=== PATIENT | female | born 1935 | race Caucasian/White ===

== ENCOUNTER 2017-09-19 10:33 | Observation (INO) | payer MEDICARE, BC ==
--- NOTE | 2017-09-19 11:11 | ED PDOC ---
HPI: General Adult Time Seen by Provider: 09/19/17 11:09 Chief Complaint (Nursing): Weakness/Neurological Deficit Chief Complaint (Provider): weakness History Per: Patient (82 y/o female h/o HTN DM Gastritis here with complaint of ongoing weakness x 2 weeks worsening over few days and preventing patient from eating. Family states patient fell 2 days ago when legs buckled from under her and she struck her head. No LOC at that time. Family notes ongoing cough. Patient was recently changed from lisinopril to hctz this week secondary to pruiritis. No fevers/chills/urinary complaints/vomiting.) Against Medical Advice - AMA Patient Left Against Medical Advice: The patient declines admission to the hospital and wishes to leave the Emergency Department. This action is against my medical advice. This decision was made with informed refusal. The patient was told that admission to the hospital is necessary. Explanation of the reasons why were discussed. The risks of leaving were explained to the patient and include, but are not limited to, worsening of known or currently unknown conditions, permanent disability and from undiagnosed or untreated conditions. The patient has the capacity to make this informed decision and understands my explanation of the current medical problem and risks of leaving. The patient voluntarily accepts these risks and signed an AMA form documenting our conversation. The patient was given the opportunity to ask questions and reconsider. The patient was encouraged to return to the Emergency Department at any time for further care. After patient given AMA information, family and patient decided to stay inpatient according to medical advice. 09/19/17 19:17 Past Medical History Reviewed: Historical Data, Nursing Documentation, Vital Signs Vital Signs: Last Vital Signs Temp 97.4 F L 09/20/17 08:30 Pulse 102 H 09/20/17 09:36 Resp 18 09/20/17 08:30 BP 162/73 H 09/20/17 09:36 Pulse Ox 95 09/20/17 08:30 - Family History Family History: States: No Known Family Hx - Home Medications Home Medications: Ambulatory Orders Medication Instructions Recorded Aspirin [Aspirin Chewable] 81 mg PO DAILY 09/19/17 Brimonidine 0.15% [Alphagan P 5 Ml] 15 ml BOTHEYES BID 09/19/17 Brinzolamide [Azopt] 1 drop BOTHEYES BID 09/19/17 Clindamycin [Cleocin] 300 mg PO Q6 #28 cap 09/19/17 Diltiazem HCl [Diltiazem HCl] 180 mg PO DAILY 09/19/17 Glipizide [Glipizide Xl] 5 mg PO DAILY 09/19/17 Hydrochlorothiazide [Microzide] 12.5 mg PO DAILY 09/19/17 Ranitidine HCl [Acid Insurance Loss Control Surveyor] 150 mg PO BID 09/19/17 - Allergies Allergies/Adverse Reactions: Allergies Allergy/AdvReac Type Severity Reaction Status Date / Time lisinopril Allergy RASH Verified 09/19/17 10:48 Penicillins Allergy VOMITING Verified 09/19/17 10:48 Review of Systems ROS Statement: Except As Marked, All Systems Reviewed And Found Negative Neurological: Positive for: Weakness Physical Exam - Reviewed Nursing Documentation Reviewed: Yes Vital Signs Reviewed: Yes - Physical Exam Appears: Positive for: Well, Non-toxic, No Acute Distress Head Exam: Positive for: ATRAUMATIC, NORMAL INSPECTION, NORMOCEPHALIC Skin: Positive for: Normal Color, Warm, DRY Eye Exam: Positive for: EOMI, Normal appearance, PERRL ENT: Positive for: Normal ENT Inspection Neck: Positive for: Normal, Painless ROM Cardiovascular/Chest: Positive for: Regular Rate, Rhythm Respiratory: Positive for: CNT, Normal Breath Sounds Gastrointestinal/Abdominal: Positive for: Normal Exam, Bowel Sounds, Soft Back: Positive for: Normal Inspection Extremity: Positive for: Normal ROM Neurologic/Psych: Positive for: Alert, Oriented - Laboratory Results Result Diagrams: 09/20/17 05:41 09/20/17 05:41 - ECG O2 Sat by Pulse Oximetry: 100 - Progress ED Course And Treament: ekg: NSR 84bpm no obvious ST abnomality Heart monitor: occasional PVC noted head ct: left parietal swelling;no acute intracranial hemorrhage duplex left lower extremity: no dvt KDUR 60 meq x 1 dose NS 1 liter 100 ml per hour As patient has pain in left leg greater than right with mild erythema, will start on clindamycin 600mg iv x 1 dose for possible cellulitis Family initially hesitant to have patient admitted. Power of contracts attorney in ED several hours after initial evaluation and lengthy discussion repeated with all family members in room regarding AMA paperwork and benefits of admission as well as risks of discharge home. Family has decided to allow patient admission to hospital for evaluation of weakness/treatment of cellulitis/ improvement of hypokalemia/hyponatremia. Will admit tele and re-evaluate. d/w Dr. Rowe hospitalist. Disposition - Clinical Impression Clinical Impression: Hypokalemia, Hyponatremia, Cellulitis, Falls, Head injury - Patient ED Disposition Is Patient to be Admitted: Yes - Disposition Disposition Time: 18:55 Condition: FAIR
[2017-09-19 11:23] LABS: BASO # 0.1 K/uL (0.0-0.2); BASO % 1.2 % (0.0-2.0); EOS # 1.8 K/uL (0.0-0.7); EOS % 21.2 % (0.0-4.0); HEMOGLOBIN 11.5 g/dL (12.0-16.0); LYMPH # 1.6 K/uL (1.0-4.3); LYMPH % 18.6 % (20.0-40.0); MEAN CELL VOLUME 98.7 fl (81.0-99.0); MEAN CORPUSCULAR HEMOGLOBIN 34.8 pg (27.0-31.0); MEAN CORPUSCULAR HGB CONC 35.2 g/dL (33.0-37.0); MEAN PLATELET VOLUME 6.5 fl (7.2-11.7); MONO # 1.1 K/uL (0.0-0.8); MONO % 13.2 % (0.0-10.0); NEUT % 45.8 % (50.0-75.0); NRBC % 0.1 % (0.0-0.0); PLATELET COUNT 373 K/uL (130-400); RBC 3.31 Mil/uL (3.80-5.20); WHITE BLOOD COUNT 8.6 K/uL (4.8-10.8)
[2017-09-19 11:28] LABS: ALB/GLOB RATIO 1.2 (1.0-2.1); ALBUMIN 3.7 g/dL (3.5-5.0); ALT/SGPT 35 U/L (9-52); AST/SGOT 73 U/L (14-36); BLOOD UREA NITROGEN 8 mg/dl (7-17); CALCIUM 9.7 mg/dL (8.4-10.2); GFR AFRICAN-AMERICAN > 60; GFR NON-AFRICAN AMERICAN > 60
[2017-09-19 11:41] LABS: B-TYPE NATRIURETIC PEPTIDE 755 pg/ml (0-900)
[2017-09-19] MEDS ORDERED: Potassium Chloride 20 mEq ER Tab PO ONE ×2 (11:55→12:18)
[2017-09-19] MEDS ORDERED: Potassium Chloride 20 mEq 100 ML IVPB ONE (11:55)
[2017-09-19] MEDS ORDERED: Sodium Chloride 0.9% 1,000 ML IV STA (11:56)
[2017-09-19 12:06] LABS: VENOUS BLOOD GAS BASE EXCESS 9.7 mmol/L (0.0-2.0); VENOUS BLOOD GAS PCO2 51 mmHg (40-60); VENOUS BLOOD GAS PO2 22 mm/Hg (30-55); VENOUS BLOOD PH 7.45 (7.32-7.43)
[2017-09-19] MEDS ORDERED: Potassium Chloride 20 mEq 100 ML ONE (12:18)
--- NOTE | 2017-09-19 12:42 | CT ---
PROCEDURE: CT HEAD WITHOUT CONTRAST. HISTORY: head injury COMPARISON: None available. TECHNIQUE: Axial computed tomography images were obtained through the head/brain without intravenous contrast. Radiation dose: Total exam DLP = 790.8 mGy-cm. This CT exam was performed using one or more of the following dose reduction techniques: Automated exposure control, adjustment of the mA and/or kV according to patient size, and/or use of iterative reconstruction technique. FINDINGS: HEMORRHAGE: No intracranial hemorrhage. BRAIN: No mass effect or edema. Atrophy. Mild chronic microvascular ischemic changes. VENTRICLES: Unremarkable. No hydrocephalus. CALVARIUM: Unremarkable. PARANASAL SINUSES: Unremarkable as visualized. No significant inflammatory changes. MASTOID AIR CELLS: Unremarkable as visualized. No inflammatory changes. OTHER FINDINGS: High left posterior parietal scalp swelling. IMPRESSION: No acute intracranial pathology.
[2017-09-19 12:43] LABS: EOSINOPHIL 24 % (0-7); HYPOCHROMIC SLIGHT; LYMPHOCYTE 15 % (20-50); MONOCYTE 14 % (0-10); NEUTROPHIL 47 % (42-75); PLATELET ESTIMATE NORMAL (NORMAL); TOTAL CELLS COUNTED 100; TOXIC GRANULATION PRESENT
[2017-09-19 13:54] LABS: SQUAMOUS EPITHIAL 3 /hpf (0-5); URINE AMORPHOUS SEDIMENT FEW /ul (<OCC); URINE BACTERIA OCC (<OCC); URINE BILIRUBIN NEGATIVE (NEGATIVE); URINE BLOOD NEGATIVE (NEGATIVE); URINE CLARITY SLIGHTY-CLOUDY (Clear); URINE COLOR YELLOW (YELLOW); URINE GLUCOSE (UA) NEG (Normal); URINE LEUKOCYTE ESTERASE NEG Leu/uL (Negative); URINE PROTEIN 30 mg/dL (NEGATIVE); URINE UROBILINOGEN 0.2-1.0 mg/dL (0.2-1.0)
--- NOTE | 2017-09-19 14:00 | US ---
HISTORY: r/o dvt . PRIORS: None. FINDINGS: 2-D, color and duplex Doppler analysis of the lower extremity venous circulation using routine protocol from the femoral veins through the popliteal veins. Venous compressibility: Normal. Flow and augmentation patterns: Normal. Visualized veins upper third of calf: Normal. Taylor cyst: None. IMPRESSION: No sonographic or Doppler evidence for DVT in left lower extremity.
--- NOTE | 2017-09-19 14:10 | RAD ---
PROCEDURE: CHEST RADIOGRAPH, 1 VIEW HISTORY: routine COMPARISON: None available. FINDINGS: LUNGS: Prominence of the bilateral interstitial markings, likely chronic. No focal consolidated. PLEURA: No pneumothorax or pleural fluid seen. CARDIOVASCULAR: Atherosclerotic aortic calcifications. Cardiomediastinal silhouette enlarged. OSSEOUS STRUCTURES: Partially imaged left reverse total shoulder arthroplasty spinal and shoulder degenerative changes. VISUALIZED UPPER ABDOMEN: Normal. OTHER FINDINGS: None. IMPRESSION: Prominence of the bilateral interstitial markings, likely chronic. No focal consolidation or pleural effusion.
[2017-09-19] MEDS ORDERED: Clindamycin in NS 300 MG/50 ML BAG IVPB STA (14:49)
[2017-09-19] MEDS ORDERED: Clindamycin 600mg/50ml NS 600 MG/50 ML BAG IVPB ONE (14:55)
[2017-09-19] MEDS ORDERED: DiphenhydrAMINE 12.5 mg/5 ml LIQ UD (5 ml) PO PRN (19:17)
--- NOTE | 2017-09-19 19:39 | CP.PCM.HP ---
History of Present Illness - History of Present Illness History of Present Illness: This is a 82 year old female with a past medical history significant for essential hypertension, Type 2 diabetes mellitus, history of gastritis, seasonal allergies, history of cellulitis of the left lower extremity 1 month ago, who presents to the ED today with the complaint of worsening generalized weakness, decreased po intake, and lethargy, getting increasingly worse over the last 2 weeks. Family members report that 2 days ago her legs buckled underneath her and she hit her head at that time. She saw Dr. Naranjo and was prescribed HCTZ about one week ago as her lisinopril was discontinued due to pruritis and concern for allergy. In addition patient complaining of some mild pain and swelling to her left leg and foot. In the ED, the patient was found to be clinically dehydrated. Labwork reveals hypokalemia of 2.7, sodium of 128, and chloride of 88, secondary to poor po intake and use of HCTZ. CT head was found to be negative. EKG shows occ PVC but no ischemia. US LLE negative for DVT; clindamycin was given due to concern for recurrent left leg cellulitis. The patient is to be admitted on observation overnight for IV hydration, monitoring of electrolytes, and for further IV antibiotic. Present on Admission - Present on Admission Any Indicators Present on Admission: No History of DVT/PE: No Review of Systems - Review of Systems Review of Systems: A 12 point review of systems was conducted and found to be negative other than what was mentioned in the HPI. Past Patient History - Infectious Disease Hx of Infectious Diseases: None - Past Medical History & Family History Past Medical History?: Yes Past Family History: Reviewed and not pertinent - Past Social History Smoking Status: Never Smoked Alcohol: None Drugs: Denies Home Situation {Lives}: With Family - CARDIAC Hx Hypertension: Yes - INTEGUMENTARY Hx Cellulitis: Yes - GASTROINTESTINAL Hx Gastritis: Yes - PSYCHIATRIC Hx Substance Use: No - SURGICAL HISTORY Hx Surgeries: No - ANESTHESIA Hx Anesthesia: No Meds Home Medications: Home Medication List Medication Instructions Recorded Confirmed Type Clindamycin [Cleocin] 300 mg PO Q6 #28 cap 09/19/17 Rx Allergies/Adverse Reactions: Allergies Allergy/AdvReac Type Severity Reaction Status Date / Time lisinopril Allergy RASH Verified 09/19/17 10:48 Penicillins Allergy VOMITING Verified 09/19/17 10:48 Physical Exam - Additional Findings Additional findings: Physical exam: Constitutional- cooperative, awake, alert, hard of hearing. clinically appears dehydrated Head- NCAT, PERRL Eye- PERRL, EOMI ENT- normal exam, MMM + Patient is hard of hearing. Neck- normal inspection, supple, no JVD Respiratory- CTAB, no wheezes rales rhonchi Cardiovascular- RRR, +S1, +S2 no MRG GI/Abdominal- normal bowel sounds, soft, no mass, no hsm Skin- warm, dry Extremities Exam- + Mild erythema and swelling of the left leg, anterior tibial area. nontender to palpation. normal capillary refill, normal inspection Neurological Exam- alert, awake, oriented Psych- normal mood, normal affect Results - Vital Signs Recent Vital Signs: Last Vital Signs Temp 97.8 F 09/19/17 14:47 Pulse 91 H 09/19/17 14:47 Resp 16 09/19/17 14:47 BP 144/59 L 09/19/17 14:47 Pulse Ox 100 09/19/17 19:18 - Labs Result Diagrams: 09/19/17 11:00 09/19/17 11:00 Labs: Laboratory Results - last 24 hr 09/19/17 09/19/17 09/19/17 11:00 11:00 11:00 WBC 8.6 RBC 3.31 L Hgb 11.5 L Hct 32.7 L MCV 98.7 MCH 34.8 H MCHC 35.2 RDW 13.0 Plt Count 373 MPV 6.5 L Neut % (Auto) 45.8 L Lymph % (Auto) 18.6 L [place] % (Auto) 13.2 H Eos % (Auto) 21.2 H Baso % (Auto) 1.2 Neut # (Auto) 4.0 Lymph # (Auto) 1.6 [place] # (Auto) 1.1 H Eos # (Auto) 1.8 H Baso # (Auto) 0.1 Neutrophils % (Manual) 47 Lymphocytes % (Manual) 15 L Monocytes % (Manual) 14 H Eosinophils % (Manual) 24 H Toxic Granulation Present Platelet Estimate Normal Hypochromasia (manual) Slight ESR pO2 VBG pH VBG pCO2 VBG HCO3 VBG Total CO2 VBG O2 Sat (Calc) VBG Base Excess VBG Potassium Glucose Lactate FiO2 Sodium 128 L Potassium 2.7 L Chloride 88 L Carbon Dioxide 28 Anion Gap 15 BUN 8 Creatinine 0.4 L Est GFR ( Amer) > 60 Est GFR (Non-Af Amer) > 60 Random Glucose 110 H Calcium 9.7 Total Bilirubin 0.9 AST 73 H ALT 35 Alkaline Phosphatase 72 Total Creatine Kinase Troponin I 0.0210 NT-Pro-B Natriuret Pep 755 Total Protein 6.9 Albumin 3.7 Globulin 3.1 Albumin/Globulin Ratio 1.2 Venous Blood Potassium Urine Color Urine Clarity Urine pH Ur Specific Brent Urine Protein Urine Glucose (UA) Urine Ketones Urine Blood Urine Nitrate Urine Bilirubin Urine Urobilinogen Ur Leukocyte Esterase Urine RBC (Auto) Urine Microscopic WBC Ur Squamous Epith Cells Amorphous Sediment Urine Bacteria Influenza Typ A,B (EIA) Negative for flu a/b 09/19/17 09/19/17 09/19/17 11:40 11:40 11:55 WBC RBC Hgb Hct MCV MCH MCHC RDW Plt Count MPV Neut % (Auto) Lymph % (Auto) [place] % (Auto) Eos % (Auto) Baso % (Auto) Neut # (Auto) Lymph # (Auto) [place] # (Auto) Eos # (Auto) Baso # (Auto) Neutrophils % (Manual) Lymphocytes % (Manual) Monocytes % (Manual) Eosinophils % (Manual) Toxic Granulation Platelet Estimate Hypochromasia (manual) ESR 55 H pO2 22 L VBG pH 7.45 H VBG pCO2 51 VBG HCO3 31.0 VBG Total CO2 37.0 H VBG O2 Sat (Calc) 38.9 L VBG Base Excess 9.7 H VBG Potassium 2.7 L Glucose 108 H Lactate 1.1 FiO2 21.0 Sodium 128.0 L Potassium Chloride 90.0 L Carbon Dioxide Anion Gap BUN Creatinine Est GFR ( Amer) Est GFR (Non-Af Amer) Random Glucose Calcium Total Bilirubin AST ALT Alkaline Phosphatase Total Creatine Kinase 73 Troponin I NT-Pro-B Natriuret Pep Total Protein Albumin Globulin Albumin/Globulin Ratio Venous Blood Potassium 2.7 L Urine Color Urine Clarity Urine pH Ur Specific Brent Urine Protein Urine Glucose (UA) Urine Ketones Urine Blood Urine Nitrate Urine Bilirubin Urine Urobilinogen Ur Leukocyte Esterase Urine RBC (Auto) Urine Microscopic WBC Ur Squamous Epith Cells Amorphous Sediment Urine Bacteria Influenza Typ A,B (EIA) 09/19/17 13:30 WBC RBC Hgb Hct MCV MCH MCHC RDW Plt Count MPV Neut % (Auto) Lymph % (Auto) [place] % (Auto) Eos % (Auto) Baso % (Auto) Neut # (Auto) Lymph # (Auto) [place] # (Auto) Eos # (Auto) Baso # (Auto) Neutrophils % (Manual) Lymphocytes % (Manual) Monocytes % (Manual) Eosinophils % (Manual) Toxic Granulation Platelet Estimate Hypochromasia (manual) ESR pO2 VBG pH VBG pCO2 VBG HCO3 VBG Total CO2 VBG O2 Sat (Calc) VBG Base Excess VBG Potassium Glucose Lactate FiO2 Sodium Potassium Chloride Carbon Dioxide Anion Gap BUN Creatinine Est GFR ( Amer) Est GFR (Non-Af Amer) Random Glucose Calcium Total Bilirubin AST ALT Alkaline Phosphatase Total Creatine Kinase Troponin I NT-Pro-B Natriuret Pep Total Protein Albumin Globulin Albumin/Globulin Ratio Venous Blood Potassium Urine Color Yellow Urine Clarity Slighty-cloudy Urine pH 8.0 Ur Specific Brent 1.009 Urine Protein 30 Urine Glucose (UA) Neg Urine Ketones Trace Urine Blood Negative Urine Nitrate Negative Urine Bilirubin Negative Urine Urobilinogen 0.2-1.0 Ur Leukocyte Esterase Neg Urine RBC (Auto) 4 H Urine Microscopic WBC 1 Ur Squamous Epith Cells 3 Amorphous Sediment Few H Urine Bacteria Occ H Influenza Typ A,B (EIA) Assessment & Plan - Assessment and Plan (Free Text) Plan: ASSESSMENT/PLAN This is a 82 year old female with a past medical history significant for essential hypertension, Type 2 diabetes mellitus, history of gastritis, seasonal allergies, history of cellulitis of the left lower extremity 1 month ago, now being placed on observation for electrolyte abnormality, dehydration, and secondary weakness 1) Hypokalemia, HCTZ induced and decreased po intake - Place on observation - Kdur 60 meq given in ED, continue 20 meq po bid - 2.7 on admission - Check magnesium and phosphorus as well - Repeat labwork in AM 2) Hypovolemia with hyponatremia and hypochloremia from dehydration - Continue normal saline at 100 cc/hour overnight - Encourage po fluid intake - Recheck labwork in AM 3) Generalized weakness, failure to thrive - encourage po intake of fluids and food - PT evaluation 4) Cellulitis of left lower extremity - Mild erythema, swelling - No fever or white count so far, continue to monitor - Continue Clindamycin 600 mg IVPB q 8 hours - Recheck CBC in AM - Bacid 1 tab po BID for c. diff prophylaxis 5) Type 2 DM - Accucheks with regular insulin sliding scale while admitted - Pt may restart oral hypoglycemic medications upon discharge 6) Essential hypertension - Hold HCTZ, lisinopril - Continue verapamil 7) DVT prophylaxis - Heparin 5000 sc q 12 hours
[2017-09-19] MEDS: Insulin Regular 100 units/ml SC SCH (22:07)
[2017-09-19] MEDS: Lactobacillus Acidophilus 500 MU Cap PO SCH (22:10)
--- NOTE | 2017-09-20 00:12 | CARD ---
APPROVED REPORT EKG Measurement Heart [id number] <Conclusion> Normal sinus rhythm Possible Left atrial enlargement Junctional ST depression, probably normal Borderline ECG
[2017-09-20] MEDS ORDERED: Pneumococcal 23-Valent Vaccine IM ONE (06:00)
[2017-09-20] MEDS: Insulin Regular 100 units/ml SC SCH ×4 (06:32→22:04)
[2017-09-20 07:16] LABS: HEMOGLOBIN 10.9 g/dL (12.0-16.0); MEAN CELL VOLUME 100.7 fl (81.0-99.0); MEAN CORPUSCULAR HEMOGLOBIN 34.4 pg (27.0-31.0); MEAN CORPUSCULAR HGB CONC 34.2 g/dL (33.0-37.0); RBC 3.17 Mil/uL (3.80-5.20)
[2017-09-20] MEDS ORDERED: Magnesium Sulfate 2 GM in Sodium Chloride 0.9% 100 ML IVPB ONE (07:23)
[2017-09-20 07:38] LABS: BLOOD UREA NITROGEN 4 mg/dl (7-17); CALCIUM 9.5 mg/dL (8.4-10.2); GFR AFRICAN-AMERICAN > 60; GFR NON-AFRICAN AMERICAN > 60
[2017-09-20] MEDS ORDERED: Potassium Chloride 20 mEq ER Tab PO SCH (09:00)
[2017-09-20] MEDS ORDERED: diltiaZEM 180 mg/24 Hours CD Cap PO SCH (09:00)
[2017-09-20] MEDS ORDERED: Magnesium Sulfate 2 gm/50 ml 2 GM/50 ML BAG IVPB ONE ×2 (09:30→16:00)
[2017-09-20] MEDS: Lactobacillus Acidophilus 500 MU Cap PO SCH ×2 (09:36→17:53)
[2017-09-20] MEDS: Potassium Chloride 20 mEq ER Tab PO SCH ×2 (09:38→17:55)
[2017-09-20] MEDS: Clindamycin 600mg/50ml NS 600 MG/50 ML BAG IVPB SCH ×2 (09:39→17:38)
[2017-09-20] MEDS: Dorzolamide 2% Ophth Soln OU SCH ×2 (11:12→13:30)
[2017-09-20] MEDS: Brimonidine 0.2% 50 DROP/5 ML BOTTLE OU SCH ×2 (11:12→13:30)
[2017-09-20] MEDS: Magnesium Oxide 400 mg Tab UD PO SCH ×2 (13:29→17:37)
--- NOTE | 2017-09-20 13:39 | CP.PCM.PN ---
Subjective - Date & Time of Evaluation Date of Evaluation: 09/20/17 Time of Evaluation: 10:00 - Subjective Subjective: Patient seen and examined today. She states that she feels a little better but still admits to being weak. She is drinking some fluids and eating; I encouraged her to drink more fluids. No chest pain, sob, n/v/d, fever, or chills. No acute events overnight. Objective - Vital Signs/Intake and Output Vital Signs (last 24 hours): Temp Pulse Resp BP Pulse Ox 97.4 F L 102 H 18 162/73 H 100 09/20/17 08:30 09/20/17 09:36 09/20/17 08:30 09/20/17 09:36 09/20/17 10:30 - Medications Medications: Current Medications Acetaminophen (Tylenol 325mg Tab) 650 mg PO Q6 PRN PRN Reason: Pain, Mild (1-3) Last Admin: 09/19/17 22:06 Dose: 650 mg Aspirin (Aspirin Chewable) 81 mg PO DAILY [facility] Last Admin: 09/20/17 09:36 Dose: 81 mg Brimonidine Tartrate (Alphagan 0.2% Opht) 1 drop OU TID [facility] Last Admin: 09/20/17 11:12 Dose: 1 u Diltiazem HCl (Cardizem Cd) 180 mg PO DAILY [facility] Last Admin: 09/20/17 09:36 Dose: 180 mg Diphenhydramine HCl (Benadryl) 12.5 mg PO Q6 PRN PRN Reason: Itching / Pruritus Last Admin: 09/19/17 22:13 Dose: 12.5 mg Dorzolamide HCl (Trusopt) 1 drop OU TID [facility] Last Admin: 09/20/17 11:12 Dose: 1 u Famotidine (Pepcid) 20 mg PO BID [facility] Fluticasone Propionate (Flonase) 1 spr ALEXANDRA BID [facility] Heparin Sodium (Porcine) (Heparin) 5,000 units SC Q12 JET PRN Reason: Protocol Last Admin: 09/20/17 09:37 Dose: 5,000 units Clindamycin Phosphate (Cleocin In Normal Saline) 600 mg in 50 mls @ 50 mls/hr IVPB Q8H JET PRN Reason: Protocol Last Admin: 09/20/17 09:39 Dose: 50 mls/hr Magnesium Sulfate 2 gm/ Sodium (Chloride) 104 mls @ 104 mls/hr IVPB ONCE ONE PRN Reason: 2 GM/HR Stop: 09/20/17 16:59 Insulin Human Regular (Humulin R) 0 units SC ACCU-CHECK JET PRN Reason: Protocol Last Admin: 09/20/17 13:10 Dose: 2 u Lactobacillus Acidophilus (Bacid Acidophilus) 1 cap PO BID [facility] Last Admin: 09/20/17 09:36 Dose: 1 cap Magnesium Oxide (Mag-Ox) 400 mg PO BID [facility] Potassium Chloride (K-Dur 20 Meq Er Tab) 40 meq PO BID [facility] Last Admin: 09/20/17 09:38 Dose: 40 meq - Labs Labs: 09/20/17 05:41 09/20/17 05:41 - Additional Findings Additional findings: Physical exam: Constitutional- cooperative, awake, alert, hard of hearing. clinically appears improved Head- NCAT, PERRL Eye- PERRL, EOMI ENT- normal exam, MMM + Patient is hard of hearing. Neck- normal inspection, supple, no JVD Respiratory- CTAB, no wheezes rales rhonchi Cardiovascular- RRR, +S1, +S2 no MRG GI/Abdominal- normal bowel sounds, soft, no mass, no hsm Skin- warm, dry Extremities Exam- + Mild erythema and swelling of the left leg, anterior tibial area,, less warm today. nontender to palpation. normal capillary refill, normal inspection Neurological Exam- alert, awake, oriented Psych- normal mood, normal affect Assessment and Plan - Assessment and Plan (Free Text) Plan: ASSESSMENT/PLAN This is a 82 year old female with a past medical history significant for essential hypertension, Type 2 diabetes mellitus, history of gastritis, seasonal allergies, history of cellulitis of the left lower extremity 1 month ago, now being placed on observation for electrolyte abnormality, dehydration, and secondary weakness 1) Hypokalemia, HCTZ induced and decreased po intake - Place on observation - Kdur 60 meq given in ED, increase to 40 mg po BID - 2.7 on admission, only minimally improved to 2.9 today - Repeat labwork in AM 2) Significant hypomagnesemia - 1.3 - 2 grams IV mag given x 2 today - PO mag supplementation as well - Recheck in AM 3) Hypovolemia with hyponatremia and hypochloremia from dehydration - Continue normal saline at 100 cc/hour overnight - Encourage po fluid intake - Recheck labwork in AM 4) Generalized weakness, failure to thrive - encourage po intake of fluids and food - PT evaluation 5) Cellulitis of left lower extremity - Mild erythema, swelling - No fever or white count so far, continue to monitor - Continue Clindamycin 600 mg IVPB q 8 hours - Recheck CBC in AM - Bacid 1 tab po BID for c. diff prophylaxis 6) Type 2 DM - Accucheks with regular insulin sliding scale while admitted - Pt may restart oral hypoglycemic medications upon discharge 7) Essential hypertension, uncontrolled - Hold HCTZ, lisinopril - Continue diltiazem (not verapamil as mentioned in H&P) and increased dosage to 240 mg po daily as she is still not controlled - avoiding diuretics due to electrolyte abnormalities - avoiding ARCHIE inhibitor due to possibility of allergy - d/c iv fluids as patient is better hydrated 8) DVT prophylaxis - Heparin 5000 sc q 12 hours
[2017-09-21] MEDS: Clindamycin 600mg/50ml NS 600 MG/50 ML BAG IVPB SCH ×2 (02:17→08:44)
[2017-09-21 06:19] LABS: BLOOD UREA NITROGEN 7 mg/dl (7-17); CALCIUM 9.3 mg/dL (8.4-10.2); GFR AFRICAN-AMERICAN > 60; GFR NON-AFRICAN AMERICAN > 60
[2017-09-21] MEDS: Insulin Regular 100 units/ml SC SCH ×2 (06:28→13:39)
[2017-09-21] MEDS: Lactobacillus Acidophilus 500 MU Cap PO SCH (08:43)
[2017-09-21 08:47] VITALS: O2SAT 96
[2017-09-21] MEDS ORDERED: diltiaZEM 240 mg/24 Hours CD Cap PO SCH (09:00)
[2017-09-21] MEDS ORDERED: Brimonidine 0.2% 50 DROP/5 ML BOTTLE OU SCH (09:00)
[2017-09-21] MEDS: Dorzolamide 2% Ophth Soln OU SCH ×2 (10:14→13:40)
[2017-09-21 10:44] LABS: HEMOGLOBIN 11.1 g/dL (12.0-16.0); MEAN CELL VOLUME 101.4 fl (81.0-99.0); MEAN CORPUSCULAR HEMOGLOBIN 34.3 pg (27.0-31.0); MEAN CORPUSCULAR HGB CONC 33.9 g/dL (33.0-37.0); RBC 3.22 Mil/uL (3.80-5.20); RED CELL DISTRIBUTION WIDTH 13.2 % (11.5-14.5); WHITE BLOOD COUNT 11.7 K/uL (4.8-10.8)
[2017-09-21 12:30] VITALS: PULSE 108; RESP 20
[2017-09-21 15:08] VITALS: BP 104/67; TEMP 99
--- NOTE | 2017-09-21 15:10 | CP.PCM.DIS ---
Provider - Provider Date of Admission: 09/19/17 18:53 Attending physician: Isauro Rowe DO Primary care physician: Dr. Naranjo Time Spent in preparation of Discharge (in minutes): 25 Hospital Course - Lab Results Lab Results: Micro Results 09/19/17 11:50 Blood-Venous Blood Culture - Preliminary NO GROWTH AFTER 48 HOURS 09/19/17 11:10 Blood-Venous Blood Culture - Preliminary NO GROWTH AFTER 48 HOURS 09/19/17 13:30 Urine,Clean Catch Urine Culture - Final Gram Positive Cocci Most Recent Lab Values WBC 11.7 K/uL (4.8-10.8) H D 09/21/17 10:25 RBC 3.22 Mil/uL (3.80-5.20) L 09/21/17 10:25 Hgb 11.1 g/dL (12.0-16.0) L 09/21/17 10:25 Hct 32.7 % (34.0-47.0) L 09/21/17 10:25 MCV 101.4 fl (81.0-99.0) H 09/21/17 10:25 MCH 34.3 pg (27.0-31.0) H 09/21/17 10:25 MCHC 33.9 g/dL (33.0-37.0) 09/21/17 10:25 RDW 13.2 % (11.5-14.5) 09/21/17 10:25 Plt Count 370 K/uL (130-400) 09/21/17 10:25 MPV 6.5 fl (7.2-11.7) L 09/19/17 11:00 Neut % (Auto) 45.8 % (50.0-75.0) L 09/19/17 11:00 Lymph % (Auto) 18.6 % (20.0-40.0) L 09/19/17 11:00 [place] % (Auto) 13.2 % (0.0-10.0) H 09/19/17 11:00 Eos % (Auto) 21.2 % (0.0-4.0) H 09/19/17 11:00 Baso % (Auto) 1.2 % (0.0-2.0) 09/19/17 11:00 Neut # (Auto) 4.0 K/uL (1.8-7.0) 09/19/17 11:00 Lymph # (Auto) 1.6 K/uL (1.0-4.3) 09/19/17 11:00 [place] # (Auto) 1.1 K/uL (0.0-0.8) H 09/19/17 11:00 Eos # (Auto) 1.8 K/uL (0.0-0.7) H 09/19/17 11:00 Baso # (Auto) 0.1 K/uL (0.0-0.2) 09/19/17 11:00 Neutrophils % (Manual) 47 % (42-75) 09/19/17 11:00 Lymphocytes % (Manual) 15 % (20-50) L 09/19/17 11:00 Monocytes % (Manual) 14 % (0-10) H 09/19/17 11:00 Eosinophils % (Manual) 24 % (0-7) H 09/19/17 11:00 Toxic Granulation Present 09/19/17 11:00 Platelet Estimate Normal (NORMAL) 09/19/17 11:00 Hypochromasia (manual) Slight 09/19/17 11:00 ESR 55 mm/hr (0-30) H 09/19/17 11:40 pO2 22 mm/Hg (30-55) L 09/19/17 11:55 VBG pH 7.45 (7.32-7.43) H 09/19/17 11:55 VBG pCO2 51 mmHg (40-60) 09/19/17 11:55 VBG HCO3 31.0 mmol/L 09/19/17 11:55 VBG Total CO2 37.0 mmol/L (22-28) H 09/19/17 11:55 VBG O2 Sat (Calc) 38.9 % (40-65) L 09/19/17 11:55 VBG Base Excess 9.7 mmol/L (0.0-2.0) H 09/19/17 11:55 VBG Potassium 2.7 mmol/L (3.6-5.2) L 09/19/17 11:55 Sodium 128.0 mmol/L (132-148) L 09/19/17 11:55 Chloride 90.0 mmol/L (98-107) L 09/19/17 11:55 Glucose 108 mg/dL (65-105) H 09/19/17 11:55 Lactate 1.1 mmol/L (0.7-2.1) 09/19/17 11:55 FiO2 21.0 % 09/19/17 11:55 Sodium 134 mmol/l (132-148) 09/21/17 04:20 Potassium 3.8 MMOL/L (3.6-5.0) 09/21/17 04:20 Chloride 99 mmol/L (98-107) 09/21/17 04:20 Carbon Dioxide 23 mmol/L (22-30) 09/21/17 04:20 Anion Gap 16 (10-20) 09/21/17 04:20 BUN 7 mg/dl (7-17) 09/21/17 04:20 Creatinine 0.5 mg/dl (0.7-1.2) L 09/21/17 04:20 Est GFR ( Amer) > 60 09/21/17 04:20 Est GFR (Non-Af Amer) > 60 09/21/17 04:20 POC Glucose (mg/dL) 125 mg/dL (65-110) H 09/21/17 11:31 Random Glucose 108 mg/dL (65-105) H 09/21/17 04:20 Calcium 9.3 mg/dL (8.4-10.2) 09/21/17 04:20 Phosphorus 4.1 mg/dl (2.5-4.5) 09/19/17 20:09 Magnesium 1.9 MG/DL (1.6-2.3) 09/21/17 04:20 Total Bilirubin 0.9 mg/dl (0.2-1.3) 09/19/17 11:00 AST 73 U/L (14-36) H 09/19/17 11:00 ALT 35 U/L (9-52) 09/19/17 11:00 Alkaline Phosphatase 72 U/L (38-126) 09/19/17 11:00 Total Creatine Kinase 73 U/L (30-135) 09/19/17 11:40 Troponin I 0.0210 ng/mL (0.00-0.120) 09/19/17 11:00 NT-Pro-B Natriuret Pep 755 pg/ml (0-900) 09/19/17 11:00 Total Protein 6.9 G/DL (6.3-8.2) 09/19/17 11:00 Albumin 3.7 g/dL (3.5-5.0) 09/19/17 11:00 Globulin 3.1 gm/dL (2.2-3.9) 09/19/17 11:00 Albumin/Globulin Ratio 1.2 (1.0-2.1) 09/19/17 11:00 Venous Blood Potassium 2.7 mmol/L (3.6-5.2) L 09/19/17 11:55 Urine Color Yellow (YELLOW) 09/19/17 13:30 Urine Clarity Slighty-cloudy (Clear) 09/19/17 13:30 Urine pH 8.0 (5.0-8.0) 09/19/17 13:30 Ur Specific Central 1.009 (1.003-1.030) 09/19/17 13:30 Urine Protein 30 mg/dL (NEGATIVE) 09/19/17 13:30 Urine Glucose (UA) Neg mg/dL (Normal) 09/19/17 13:30 Urine Ketones Trace mg/dL (NEGATIVE) 09/19/17 13:30 Urine Blood Negative (NEGATIVE) 09/19/17 13:30 Urine Nitrate Negative (NEGATIVE) 09/19/17 13:30 Urine Bilirubin Negative (NEGATIVE) 09/19/17 13:30 Urine Urobilinogen 0.2-1.0 mg/dL (0.2-1.0) 09/19/17 13:30 Ur Leukocyte Esterase Neg Reji/uL (Negative) 09/19/17 13:30 Urine RBC (Auto) 4 /hpf (0-3) H 09/19/17 13:30 Urine Microscopic WBC 1 /hpf (0-5) 09/19/17 13:30 Ur Squamous Epith Cells 3 /hpf (0-5) 09/19/17 13:30 Amorphous Sediment Few /ul (<OCC) H 09/19/17 13:30 Urine Bacteria Occ (<OCC) H 09/19/17 13:30 Influenza Typ A,B (EIA) Negative for flu a/b (NEGATIVE) 09/19/17 11:00 - Hospital Course Hospital Course: This is a 82 year old female with a past medical history significant for essential hypertension, Type 2 diabetes mellitus, history of gastritis, seasonal allergies, history of cellulitis of the left lower extremity 1 month ago, who presents to the ED today with the complaint of worsening generalized weakness, decreased po intake, and lethargy, getting increasingly worse over the last 2 weeks. Family members report that 2 days ago her legs buckled underneath her and she hit her head at that time. She saw her PMD and was prescribed HCTZ about one week ago as her lisinopril was discontinued due to pruritis and concern for allergy. In addition patient complaining of some mild pain and swelling to her left leg and foot. In the ED, the patient was found to be clinically dehydrated. Labwork reveals hypokalemia of 2.7, sodium of 128, and chloride of 88, secondary to poor po intake and use of HCTZ. CT head was found to be negative. EKG shows occ PVC but no ischemia. US LLE negative for DVT; clindamycin was given due to concern for recurrent left leg cellulitis. The patient is to be admitted on observation overnight for IV hydration, monitoring of electrolytes, and for further IV antibiotic. 1) Hypokalemia, HCTZ induced and decreased po intake, resolved Potassium now 2.7->2.9-> 3.8 hold HCTZ patient normovolemic Cont multivitamin at home OTC 2) Significant hypomagnesemia - 1.3->1.9 today - 2 grams IV mag given x 2 yesterday - PO mag supplementation as well 3) Hypovolemia with hyponatremia and hypochloremia from dehydration, resolved - IVF 75 cc/hour overnight - Encourage po fluid intake - sodium, chloride improved 4) Generalized weakness, failure to thrive - patient more alert today and eating well - encourage po intake of fluids and food - Patient's family to arrange outpatient physical therapy, to discuss with Dr. Naranjo 5) Cellulitis of left lower extremity- improved - Mild erythema, swelling - No leukocytosis - Borderline fever 100.4 this morning briefly but resolved - Continue Clindamycin as outpatient - Bacid 1 tab po BID for c. diff prophylaxis 6) Type 2 DM - Accucheks with regular insulin sliding scale while admitted - Pt may restart oral hypoglycemic medications upon discharge 7) Essential hypertension, uncontrolled - Hold HCTZ, lisinopril - Continue diltiazem SR and increased dosage to 240 mg po daily yesterday as we are holding HCTZ - avoiding diuretics due to electrolyte abnormalities - avoiding ARCHIE inhibitor due to possibility of allergy - d/c iv fluids as patient is better hydrated 8) DVT prophylaxis - Heparin 5000 sc q 12 hours while admitted Discharge Exam - Head Exam Head Exam: ATRAUMATIC, NORMAL INSPECTION, NORMOCEPHALIC Discharge Plan - Discharge Medications Prescriptions: Clindamycin [Cleocin] 300 mg PO Q6 #28 cap diltiaZEM CD [Cardizem CD] 240 mg PO DAILY #30 cap Lactobacillus Acidophilus [Bacid Acidophilus] 1 cap PO BID 20 Days #40 cap - Follow Up Plan Condition: FAIR Disposition: HOME/ ROUTINE Instructions: Hypokalemia, High Potassium Diet, Cellulitis (Skin Infection), Adult (DC), Hyponatremia (DC), Cellulitis (DC), Cellulitis (GEN), Hyponatremia ( DC), Hypokalemia (DC), Hypokalemia (GEN) Additional Instructions: follow up with pmd this week Referrals: Mary Naranjo MD [Staff Provider] -
== END 2017-09-21 15:15 | disposition home or self-care (01) ==
LOC: H.ER 10:33 → H.ERHOLD 18:53 → H.TEL 20:45
PROVIDERS: ADMIT Internal Medicine; ATTEND Internal Medicine
DX: E87.6 Hypokalemia (principal); E86.1 Hypovolemia; E87.1 Hypo-osmolality and hyponatremia; E83.42 Hypomagnesemia; E86.0 Dehydration; R62.7 Adult failure to thrive; L03.116 Cellulitis of left lower limb; E11.9 Type 2 diabetes mellitus without complications; I10 Essential (primary) hypertension; I49.3 Ventricular premature depolarization; L29.9 Pruritus, unspecified; S09.90XA Unspecified injury of head, initial encounter; W19.XXXA Unspecified fall, initial encounter; Y93.9 Activity, unspecified; Y92.9 Unspecified place or not applicable; J30.2 Other seasonal allergic rhinitis; K29.70 Gastritis, unspecified, without bleeding; Z79.84 Long term (current) use of oral hypoglycemic drugs; Z23 Encounter for immunization
CPT/HCPCS: 36415; 70450; 71045; 80048; 80053; 81003; 82550; 82803; 82948; 83735; 83880; 84100; 84484; 85025; 85027; 85651; 87040; 87086; 87804; 90732; 93005; 93971; 96365; 96366; 97162; 99285; G0009; G0378; G8978; G8979; J1644; J3480; J7040

== ENCOUNTER 2018-11-03 19:15 | Observation (INO) | payer MEDICARE, BC ==
[2018-11-03 19:31] VITALS: BMI 20.4
--- NOTE | 2018-11-03 20:13 | ED PDOC ---
HPI: SOB/CHF/COPD Time Seen by Provider: 11/03/18 19:54 Chief Complaint (Nursing): Shortness Of Breath Chief Complaint (Provider): Shortness Of Breath History Per: Patient, Family (Son) History/Exam Limitations: no limitations Onset/Duration Of Symptoms: Hrs Current Symptoms Are (Timing): Still Present Additional Complaint(s): Patient is an 83 y/o female with a PMHx of HTN, CHF, depression, gastritis, and graves disease who presents to the ED for evaluation of worsening shortness of breath onset today. Patient's son states he took her to see the Infusion Rn where she was walking fine, however, today on the way to the Physical Therapist patient demonstrated increased shortness of breath with just a few steps. The patient contacted her industrial equipment wirer who recommended to go to the ED for cardiac workup. Currently, patient complains of epigastric pain. Of note, patient took Pepcid at home without relief. Patient denies cough, chest pain, and leg pain or swelling. PCP: Dr. Armenta Infusion Rn: Dr. Desmond Rodriguez Past Medical History Reviewed: Historical Data, Nursing Documentation, Vital Signs Vital Signs: Last Vital Signs Temp 97.9 F 11/03/18 19:28 Pulse 93 H 11/03/18 19:28 Resp 18 11/03/18 19:28 BP 161/82 H 11/03/18 19:28 Pulse Ox 97 11/03/18 19:28 Primary Care Provider: FAMILY PROVIDER,NO - Medical History PMH: CHF, Depression, Gastritis, Graves' Disease, HTN Denies: Chronic Kidney Disease - Surgical History Surgical History: No Surg Hx - Family History Family History: States: No Known Family Hx - Home Medications Home Medications: Ambulatory Orders Medication Instructions Recorded Aspirin [Aspirin Chewable] 81 mg PO DAILY 09/19/17 Brimonidine 0.15% [Alphagan P 15 ml BOTHEYES BID 09/19/17 0.15% Opht] Brinzolamide [Azopt] 1 drop BOTHEYES BID 09/19/17 Carvedilol [Coreg] 6.25 mg PO BID 11/04/18 Folic Acid 1 mg PO DAILY 11/04/18 Lisinopril [Zestril] 2.5 mg PO BID 11/04/18 Spironolactone [Aldactone] 12.5 mg PO DAILY 11/04/18 predniSONE [predniSONE Tab] 10 mg PO DAILY 11/04/18 Furosemide [Lasix] 20 mg PO DAILY #30 tablet 11/05/18 - Allergies Allergies/Adverse Reactions: Allergies Allergy/AdvReac Type Severity Reaction Status Date / Time Penicillins Allergy VOMITING Verified 09/19/17 10:48 Review of Systems ROS Statement: Except As Marked, All Systems Reviewed And Found Negative Cardiovascular: Negative for: Chest Pain Respiratory: Positive for: Shortness of Breath. Negative for: Cough Gastrointestinal: Positive for: Abdominal Pain (epigastric) Musculoskeletal: Negative for: Leg Pain (or swelling) Physical Exam - Reviewed Nursing Documentation Reviewed: Yes Vital Signs Reviewed: Yes - Physical Exam Appears: Positive for: No Acute Distress Head Exam: Positive for: ATRAUMATIC, NORMAL INSPECTION, NORMOCEPHALIC Skin: Positive for: Normal Color, Warm, DRY Eye Exam: Positive for: EOMI, Normal appearance, PERRL Neck: Positive for: Normal, Painless ROM, Supple Cardiovascular/Chest: Positive for: Regular Rate, Rhythm, Other (wearing cardiac holter). Negative for: Murmur Respiratory: Positive for: Normal Breath Sounds. Negative for: Respiratory Distress Gastrointestinal/Abdominal: Positive for: Normal Exam, Soft. Negative for: Tenderness Back: Positive for: Normal Inspection. Negative for: L CVA Tenderness, R CVA Tenderness Extremity: Positive for: Normal ROM. Negative for: Pedal Edema, Deformity Neurological/Psych: Positive for: Alert, Oriented (x3) - Laboratory Results Result Diagrams: 11/04/18 05:00 11/05/18 09:00 - ECG ECG Rhythm: Positive for: Sinus Rhythm Rate: 95 O2 Sat by Pulse Oximetry: 97 (RA) Pulse Ox Interpretation: Normal Medical Decision Making Medical Decision Making: Time: 1942 Plan: Workup for Increased Shortness of Breath EKG BNP CMP Troponin I CBC PTT Prothrombin Time CXR Protonix 40 mg IVP Reglan 10 mg IVP Time: 2210 Labs show elevated liver enzymes. [place] [address]. Cardiomegaly on CXR. Will give Lasix and admit for CHF. Scribe Attestation: Documented by Ron Galaviz, acting as a scribe for Julissa Madrigal MD. Provider Scribe Attestation: All medical record entries made by the Scribe were at my direction and personally dictated by me. I have reviewed the chart and agree that the record accurately reflects my personal performance of the history, physical exam, medical decision making, and the department course for this patient. I have also personally directed, reviewed, and agree with the discharge instructions and disposition. Disposition - Clinical Impression Clinical Impression: Chronic congestive heart failure - Disposition Disposition Time: 22:10 Condition: GOOD
[2018-11-03 20:38] LABS: BASO # 0.1 K/uL (0.0-0.2); BASO % 1.1 % (0.0-2.0); EOS # 0.1 K/uL (0.0-0.7); EOS % 0.8 % (0.0-4.0); HEMOGLOBIN 12.6 g/dL (12.0-16.0); LYMPH # 0.7 K/uL (1.0-4.3); MEAN CELL VOLUME 101.8 fl (81.0-99.0); MEAN CORPUSCULAR HEMOGLOBIN 32.5 pg (27.0-31.0); MEAN PLATELET VOLUME 7.6 fl (7.2-11.7); MONO # 0.2 K/uL (0.0-0.8); MONO % 3.2 % (0.0-10.0); NEUT # 5.5 K/uL (1.8-7.0); NEUT % 83.9 % (50.0-75.0); NRBC % 0.1 % (0.0-0.0); RBC 3.88 Mil/uL (3.80-5.20); RED CELL DISTRIBUTION WIDTH 17.7 % (11.5-14.5); WHITE BLOOD COUNT 6.5 K/uL (4.8-10.8)
[2018-11-03] MEDS ORDERED: Sterile Water 10 ML IV ONE (20:48)
[2018-11-03 20:49] LABS: INR 1.2; PROTHROMBIN TIME 13.7 Seconds (9.8-13.1)
[2018-11-03 20:52] LABS: PARTIAL THROMBOPLASTIN TIME 32.3 Seconds (25.6-37.1)
[2018-11-03 21:12] LABS: ALB/GLOB RATIO 1.1 (1.0-2.1); ALBUMIN 3.7 g/dL (3.5-5.0); ALT/SGPT 57 U/L (9-52); AST/SGOT 71 U/L (14-36); BLOOD UREA NITROGEN 29 mg/dl (7-17); CALCIUM 8.6 mg/dL (8.4-10.2); GFR NON-AFRICAN AMERICAN > 60
[2018-11-03 21:22] LABS: B-TYPE NATRIURETIC PEPTIDE 30700 pg/ml (0-900)
--- NOTE | 2018-11-03 23:42 | CP.PCM.HP ---
<Andriy Daniel - Last Filed: 11/04/18 03:00> History of Present Illness - History of Present Illness History of Present Illness: 83 yo F with pmhx of HTN, CHF, DM, depression, graves disease, gastristis, presents for 2 day history of SOB. Son is present for interview since patient is hard of hearing, using hearing aides. Pt was noted to be short of breath after walking 10-15 steps. Pt visited Mechanical Test Technician who recommended ED eval. Pt had ECHO 2 days ago. Pt states she was on lasix, however, stopped 1 year ago. Of note: pt was given life vest 3 weeks ago for mary ann cardia. No history of cardiac arrest. Denies CP/n/v/d/c. Tolerating normal diet and bowel movements. no recent history of URI/Pneumonia. No sick contacts or recent travel. No fever, chills. PMD: Dr. Armenta Cardiology: Dr. Chan [phone] Famhx: none Soc: Denies smoking, alcohol, illicit drugs Surg: R mastectomy, shoulder, back Rx: reconciled Allergy to PCN Present on Admission - Present on Admission Any Indicators Present on Admission: Yes History of Uncontrolled Diabetes: Yes Review of Systems - Cardiovascular Cardiovascular: absent: Chest Pain, Chest Pain at Rest - Respiratory Respiratory: Dyspnea, Dyspnea on Exertion - Gastrointestinal Gastrointestinal: Abdominal Pain (epigastric), Heartburn - Genitourinary Genitourinary: absent: Dysuria, Hematuria, Urinary Frequency Past Patient History - Infectious Disease Hx of Infectious Diseases: None - Past Medical History & Family History Past Medical History?: Yes - Past Social History Smoking Status: Never Smoked - CARDIAC Hx Congestive Heart Failure: Yes Hx Hypertension: Yes - PULMONARY Hx Respiratory Disorders: No - NEUROLOGICAL Hx Neurological Disorder: No - HEENT Hx HEENT Problems: Yes Hx Glaucoma: Yes - RENAL Hx Chronic Kidney Disease: No - ENDOCRINE/METABOLIC Hx Endocrine Disorders: Yes Hx Diabetes Mellitus Type 2: Yes - HEMATOLOGICAL/ONCOLOGICAL Hx Blood Disorders: No - INTEGUMENTARY Hx Dermatological Problems: No - MUSCULOSKELETAL/RHEUMATOLOGICAL Hx Musculoskeletal Disorders: Yes Hx Falls: Yes - GASTROINTESTINAL Hx Gastritis: Yes - GENITOURINARY/GYNECOLOGICAL Hx Genitourinary Disorders: No - PSYCHIATRIC Hx Depression: Yes - SURGICAL HISTORY Hx Surgeries: Yes Hx Mastectomy: Yes (in situ) Other/Comment: shoulder surgery, hemmorhoid surgery - ANESTHESIA Hx Anesthesia: Yes Hx Anesthesia Reactions: No Meds Allergies/Adverse Reactions: Allergies Allergy/AdvReac Type Severity Reaction Status Date / Time Penicillins Allergy VOMITING Verified 09/19/17 10:48 Physical Exam - Constitutional Appears: No Acute Distress - Eye Exam Eye Exam: EOMI - ENT Exam ENT Exam: Mucous Membranes Moist - Respiratory Exam Respiratory Exam: Decreased Breath Sounds, Rales. absent: Wheezes - Cardiovascular Exam Cardiovascular Exam: REGULAR RHYTHM, +S1, +S2 Additional comments: with life vest - GI/Abdominal Exam GI & Abdominal Exam: Normal Bowel Sounds, Soft. absent: Tenderness - Extremities Exam Extremities exam: Negative for: calf tenderness, pedal edema - Back Exam Back exam: absent: CVA tenderness (L), CVA tenderness (R) - Neurological Exam Neurological exam: Alert, CN II-XII Intact, Oriented x3 - Psychiatric Exam Psychiatric exam: Normal Affect, Normal Mood Results - Vital Signs Recent Vital Signs: Last Vital Signs Temp 97.9 F 11/03/18 19:28 Pulse 95 H 11/03/18 22:15 Resp 18 11/03/18 19:28 BP 174/84 H 11/03/18 23:16 Pulse Ox 97 11/03/18 22:15 - Labs Result Diagrams: 11/03/18 20:34 11/03/18 20:34 Labs: Laboratory Results - last 24 hr 11/03/18 11/03/18 11/03/18 20:34 20:34 20:34 WBC 6.5 RBC 3.88 Hgb 12.6 Hct 39.4 MCV 101.8 H MCH 32.5 H MCHC 32.0 L RDW 17.7 H Plt Count 219 D MPV 7.6 Neut % (Auto) 83.9 H Lymph % (Auto) 11.0 L [place] % (Auto) 3.2 Eos % (Auto) 0.8 Baso % (Auto) 1.1 Neut # (Auto) 5.5 Lymph # (Auto) 0.7 L [place] # (Auto) 0.2 Eos # (Auto) 0.1 Baso # (Auto) 0.1 PT 13.7 H INR 1.2 APTT 32.3 Sodium 137 Potassium 4.4 Chloride 104 Carbon Dioxide 21 L Anion Gap 16 BUN 29 H Creatinine 0.7 Est GFR ( Amer) > 60 Est GFR (Non-Af Amer) > 60 Random Glucose 152 H Calcium 8.6 Total Bilirubin 1.9 H AST 71 H ALT 57 H D Alkaline Phosphatase 96 Troponin I 0.0200 NT-Pro-B Natriuret Pep 70934 H Total Protein 7.1 Albumin 3.7 Globulin 3.5 Albumin/Globulin Ratio 1.1 Assessment & Plan - Assessment and Plan (Free Text) Assessment: 83 yo F with pmhx of HTN, CHF, DM, depression, graves disease, gastritis, presents for 2 day history of SOB. Admitted for CHF exacerbation Plan: CHF ProBNP: [address] Chan; will contact for ECHO results Cardiology consulted: Dr. Bradley; further recs appreciated s/p lasix 40 IVP in ER; c/w lasix 40 qd f/u am labs HTN 163/70 c/w home meds monitor vitals DM accuchecks hypoglycemia protocol ICS low dose f/u a1c GERD with epigastric pain c/w pantoprazole f/u troponins Transaminitis could be 2/2 to CHF exacerbation continue to monitor Megaloblastic anemia MCV 101.8 c/w home med: folate f/u Folate and B12 Hx of Grave's currently not on treatment f/u TSH Glaucoma c/w home meds; drops Appetite Pt states shes taking prednisone for appetite stimulation DVT/GI prophylaxis SCD pantoprazole PT/OT adl and ambulation Andriy Daniel MD PGY-2 <Vinnie Ramos - Last Filed: 11/04/18 11:55> Results - Vital Signs Recent Vital Signs: Last Vital Signs Temp 97.8 F 11/04/18 07:56 Pulse 60 11/04/18 09:06 Resp 20 11/04/18 07:56 BP 166/79 H 11/04/18 09:08 Pulse Ox 97 11/04/18 07:56 - Labs Result Diagrams: 11/04/18 05:00 11/04/18 05:00 Labs: Laboratory Results - last 24 hr 11/03/18 11/03/18 11/03/18 00:46 20:34 20:34 WBC 6.5 RBC 3.88 Hgb 12.6 Hct 39.4 MCV 101.8 H MCH 32.5 H MCHC 32.0 L RDW 17.7 H Plt Count 219 D MPV 7.6 Neut % (Auto) 83.9 H Lymph % (Auto) 11.0 L [place] % (Auto) 3.2 Eos % (Auto) 0.8 Baso % (Auto) 1.1 Neut # (Auto) 5.5 Lymph # (Auto) 0.7 L [place] # (Auto) 0.2 Eos # (Auto) 0.1 Baso # (Auto) 0.1 PT INR APTT Sodium 137 Potassium 4.4 Chloride 104 Carbon Dioxide 21 L Anion Gap 16 BUN 29 H Creatinine 0.7 Est GFR ( Amer) > 60 Est GFR (Non-Af Amer) > 60 POC Glucose (mg/dL) Random Glucose 152 H Hemoglobin A1c Calcium 8.6 Phosphorus Magnesium Total Bilirubin 1.9 H AST 71 H ALT 57 H D Alkaline Phosphatase 96 Troponin I 0.0200 0.0200 NT-Pro-B Natriuret Pep 98767 H Total Protein 7.1 Albumin 3.7 Globulin 3.5 Albumin/Globulin Ratio 1.1 Triglycerides Cholesterol LDL Cholesterol Direct HDL Cholesterol Vitamin B12 TSH 3rd Generation 11/03/18 11/04/18 11/04/18 20:34 00:40 05:00 WBC 6.6 RBC 3.91 Hgb 12.7 Hct 39.5 MCV 100.8 H MCH 32.5 H MCHC 32.2 L RDW 17.3 H Plt Count 210 MPV Neut % (Auto) Lymph % (Auto) [place] % (Auto) Eos % (Auto) Baso % (Auto) Neut # (Auto) Lymph # (Auto) [place] # (Auto) Eos # (Auto) Baso # (Auto) PT 13.7 H INR 1.2 APTT 32.3 Sodium Potassium Chloride Carbon Dioxide Anion Gap BUN Creatinine Est GFR ( Amer) Est GFR (Non-Af Amer) POC Glucose (mg/dL) 168 H Random Glucose Hemoglobin A1c Calcium Phosphorus Magnesium Total Bilirubin AST ALT Alkaline Phosphatase Troponin I NT-Pro-B Natriuret Pep Total Protein Albumin Globulin Albumin/Globulin Ratio Triglycerides Cholesterol LDL Cholesterol Direct HDL Cholesterol Vitamin B12 TSH 3rd Generation 11/04/18 11/04/18 11/04/18 05:00 05:00 05:50 WBC RBC Hgb Hct MCV MCH MCHC RDW Plt Count MPV Neut % (Auto) Lymph % (Auto) [place] % (Auto) Eos % (Auto) Baso % (Auto) Neut # (Auto) Lymph # (Auto) [place] # (Auto) Eos # (Auto) Baso # (Auto) PT INR APTT Sodium 137 Potassium 3.3 L Chloride 101 Carbon Dioxide 27 Anion Gap 12 BUN 26 H Creatinine 0.7 Est GFR ( Amer) > 60 Est GFR (Non-Af Amer) > 60 POC Glucose (mg/dL) 125 H Random Glucose 115 H Hemoglobin A1c 5.9 Calcium 8.8 Phosphorus 3.6 Magnesium 1.5 L Total Bilirubin 1.8 H AST 58 H ALT 49 Alkaline Phosphatase 93 Troponin I 0.0240 NT-Pro-B Natriuret Pep Total Protein 6.8 Albumin 3.6 Globulin 3.2 Albumin/Globulin Ratio 1.1 Triglycerides 65 Cholesterol 132 LDL Cholesterol Direct 70 HDL Cholesterol 44 Vitamin B12 896 TSH 3rd Generation 2.04 11/04/18 10:51 WBC RBC Hgb Hct MCV MCH MCHC RDW Plt Count MPV Neut % (Auto) Lymph % (Auto) [place] % (Auto) Eos % (Auto) Baso % (Auto) Neut # (Auto) Lymph # (Auto) [place] # (Auto) Eos # (Auto) Baso # (Auto) PT INR APTT Sodium Potassium Chloride Carbon Dioxide Anion Gap BUN Creatinine Est GFR ( Amer) Est GFR (Non-Af Amer) POC Glucose (mg/dL) 156 H Random Glucose Hemoglobin A1c Calcium Phosphorus Magnesium Total Bilirubin AST ALT Alkaline Phosphatase Troponin I NT-Pro-B Natriuret Pep Total Protein Albumin Globulin Albumin/Globulin Ratio Triglycerides Cholesterol LDL Cholesterol Direct HDL Cholesterol Vitamin B12 TSH 3rd Generation Attending/Attestation - Attestation I have personally seen and examined this patient.: Yes I have fully participated in the care of the patient.: Yes I have reviewed all pertinent clinical information: Yes Notes (Text): 11/04/18 11:42 I saw, examined and discussed this patient with Dr Daniel. I agree with the assessment and plan outlined which represent my direct input. This is an 83 years old female with hx of CHF wearing a Life vest, HTN and Diabetes who last saw her Mechanical Test Technician 3 days prior, She comes with Worsening SOB on minimal exertion. Chest X ray showed mild bilateral basal pleural effusion with mild congestion. We will treat for an acute on chronic CHF of Unspecified LVEF, increasing diuret ic, ARCHIE-inhibitor and Beta Rafita as is appropriate.. We will consult with our defence intelligence analyst Dr Bradley and contact Dr Chan the patient's defence intelligence analyst who is not on staff at this institution, for results of the last ECHO that was done 3 days ago. Continue Home medication for HTN and Diabetes. The transaminitis is a result of liver congestion due to the CHF. Vinnie Ramos MD
[2018-11-03] MEDS ORDERED: Dextrose 50% SYRINGE Inj (50 ml) IV PRN (23:53)
[2018-11-03] MEDS ORDERED: Glucagon Recombinant 1 mg Inj IM PRN (23:53)
[2018-11-04 05:35] LABS: HEMOGLOBIN 12.7 g/dL (12.0-16.0); MEAN CELL VOLUME 100.8 fl (81.0-99.0); MEAN CORPUSCULAR HEMOGLOBIN 32.5 pg (27.0-31.0); MEAN CORPUSCULAR HGB CONC 32.2 g/dL (33.0-37.0); RBC 3.91 Mil/uL (3.80-5.20); RED CELL DISTRIBUTION WIDTH 17.3 % (11.5-14.5); WHITE BLOOD COUNT 6.6 K/uL (4.8-10.8)
[2018-11-04 05:44] LABS: ALB/GLOB RATIO 1.1 (1.0-2.1); ALBUMIN 3.6 g/dL (3.5-5.0); ALT/SGPT 49 U/L (9-52); AST/SGOT 58 U/L (14-36); BLOOD UREA NITROGEN 26 mg/dl (7-17); CALCIUM 8.8 mg/dL (8.4-10.2); GFR NON-AFRICAN AMERICAN > 60; HDL CHOLESTEROL 44 MG/DL (30-70)
[2018-11-04 05:48] LABS: LDL CHOLESTEROL 70 mg/dL (0-129)
[2018-11-04] MEDS: Brimonidine 0.2% 50 DROP/5 ML BOTTLE OU SCH ×2 (09:05→17:07)
[2018-11-04] MEDS: Insulin Regular 100 units/ml SC SCH ×4 (09:07→21:55)
[2018-11-04] MEDS: Pantoprazole 40 mg EC Tab PO SCH (09:08)
[2018-11-04] MEDS: Dorzolamide 2% Ophth Soln OU SCH ×2 (09:09→17:07)
--- NOTE | 2018-11-04 09:34 | CP.PCM.CON ---
History of Present Illness - History of Present Illness History of Present Illness: 83-year-old hypertensive diabetic female arrived in the emergency room profoundly short of breath. According to her son barely 4 days back she was able to walk 6-7 blocks without any difficulty and now could barely take 10 steps without getting profoundly short of breath. He gives history of her hospitalized a month back while visiting [place] where an echocardiogram was performed and she was told of congestive cardiac failure and a LifeVest was recommended which she has worn ever since. She recently saw a claim inspector in [place] and another echocardiogram was performed. The claim inspector's office promises to have him call me in the next couple of hours. The son admits that very likely there was a fair amount of salt intake over the last 3 to 4 days. She has never suffered a myocardial infarction and never complained of chest pain connected to physical activity. She has a history of Graves' disease and depression and glaucoma. Physical examination shows a thin built elderly female with prominent eyes who reports a marked improvement in her capacity to breathe following diuresis d uring the night. Telemetry shows sinus rhythm at 80 bpm and regular with a blood pressure of 126/74 mmHg. Her jugular venous pressure was mildly elevated there was no pedal edema. Her extremities were warm and nailbeds were pink. There was no central or peripheral cyanosis. There was no clubbing. There were no carotid bruits. The pedal pulses were well felt. The apex was in the 6 space slightly heaving in character but the first heart sound was slightly muffled the second heart sound was normal there was a long apical systolic murmur. There was no S3 gallop. There were few scattered rales at both bases. Abdomen was soft liver and spleen were not palpable. Her electrocardiogram at admission shows sinus rhythm at 95 bpm with a pattern of left ventricular hypertrophy and prominent left atrium. Her lab data showed a hemoglobin and hematocrit of 12.7 g and 39.5% respectively her BUN/creatinine where 26 and 0.7 mg percent and following diuresis this morning her potassium was 3.3 mEq/L. Her AST and ALT at admission were 71 and 57 units respectively which this morning are 58 and 49 units indicating significant resolution of hepatic congestion following diuresis. Impression congestive cardiac failure, acute on chronic left ventricular and systolic. Hypertension and diabetes mellitus history of Graves' disease I will speak with the claim inspector that she saw couple of days back and get the findings of the echocardiogram as well. If necessary another one would be done here in the hospital. In the meantime the patient appears markedly improved and would continue to get loop diuretics and will need dietary counseling to avoid salty food. Following discharge she will return to her claim inspector. Past Patient History - Infectious Disease Hx of Infectious Diseases: None - Past Medical History & Family History Past Medical History?: Yes - Past Social History Smoking Status: Never Smoked - CARDIAC Hx Congestive Heart Failure: Yes Hx Hypertension: Yes - PULMONARY Hx Respiratory Disorders: No - NEUROLOGICAL Hx Neurological Disorder: No - HEENT Hx HEENT Problems: Yes Hx Glaucoma: Yes - RENAL Hx Chronic Kidney Disease: No - ENDOCRINE/METABOLIC Hx Endocrine Disorders: Yes Hx Diabetes Mellitus Type 2: Yes - HEMATOLOGICAL/ONCOLOGICAL Hx Blood Disorders: No - INTEGUMENTARY Hx Dermatological Problems: No - MUSCULOSKELETAL/RHEUMATOLOGICAL Hx Musculoskeletal Disorders: Yes Hx Falls: Yes - GASTROINTESTINAL Hx Gastritis: Yes - GENITOURINARY/GYNECOLOGICAL Hx Genitourinary Disorders: No - PSYCHIATRIC Hx Depression: Yes - SURGICAL HISTORY Hx Surgeries: Yes Hx Mastectomy: Yes (in situ) Other/Comment: shoulder surgery, hemmorhoid surgery - ANESTHESIA Hx Anesthesia: Yes Hx Anesthesia Reactions: No Meds Allergies/Adverse Reactions: Allergies Allergy/AdvReac Type Severity Reaction Status Date / Time Penicillins Allergy VOMITING Verified 09/19/17 10:48 - Medications Medications: Current Medications Aspirin (Aspirin Chewable) 81 mg PO DAILY [facility] Last Admin: 11/04/18 09:05 Dose: 81 mg Brimonidine Tartrate (Alphagan 0.2% Opht) 1 drop OU BID [facility] Last Admin: 11/04/18 09:05 Dose: 1 drop Carvedilol (Coreg) 6.25 mg PO BID [facility] Last Admin: 11/04/18 09:06 Dose: Not Given Dextrose (Dextrose 50% Inj) 0 ml IV STAT PRN; Protocol PRN Reason: Hypoglycemia Protocol Dextrose (Glutose 15) 0 gm PO ONCE PRN; Protocol PRN Reason: Hypoglycemia Protocol Dorzolamide HCl (Trusopt) 1 drop OU BID [facility] Last Admin: 11/04/18 09:09 Dose: 1 drop Folic Acid (Folic Acid) 1 mg PO DAILY [facility] Last Admin: 11/04/18 09:07 Dose: 1 mg Furosemide (Lasix) 40 mg PO DAILY [facility] Last Admin: 11/04/18 09:08 Dose: 40 mg Glucagon (Glucagen Diagnostic Kit) 0 mg IM STAT PRN; Protocol PRN Reason: Hypoglycemia Protocol Insulin Human Regular (Humulin R) 0 units SC ACHS [facility]; Protocol Last Admin: 11/04/18 09:07 Dose: Not Given Lisinopril (Zestril) 2.5 mg PO BID [facility] Last Admin: 11/04/18 09:09 Dose: 2.5 mg Pantoprazole Sodium (Protonix Ec Tab) 40 mg PO DAILY [facility] Last Admin: 11/04/18 09:08 Dose: 40 mg Prednisone (Prednisone Tab) 10 mg PO DAILY [facility] Last Admin: 11/04/18 09:08 Dose: 10 mg Spironolactone (Aldactone) 12.5 mg PO DAILY [facility] Last Admin: 11/04/18 09:04 Dose: 12.5 mg Results - Vital Signs Recent Vital Signs: Last Vital Signs Temp 97.8 F 11/04/18 07:56 Pulse 60 11/04/18 09:06 Resp 20 11/04/18 07:56 BP 166/79 H 11/04/18 09:08 Pulse Ox 97 11/04/18 07:56 - Labs Result Diagrams: 11/04/18 05:00 11/04/18 05:00 Labs: Laboratory Results - last 24 hr 11/03/18 11/03/18 11/03/18 00:46 20:34 20:34 WBC 6.5 RBC 3.88 Hgb 12.6 Hct 39.4 MCV 101.8 H MCH 32.5 H MCHC 32.0 L RDW 17.7 H Plt Count 219 D MPV 7.6 Neut % (Auto) 83.9 H Lymph % (Auto) 11.0 L [place] % (Auto) 3.2 Eos % (Auto) 0.8 Baso % (Auto) 1.1 Neut # (Auto) 5.5 Lymph # (Auto) 0.7 L [place] # (Auto) 0.2 Eos # (Auto) 0.1 Baso # (Auto) 0.1 PT INR APTT Sodium 137 Potassium 4.4 Chloride 104 Carbon Dioxide 21 L Anion Gap 16 BUN 29 H Creatinine 0.7 Est GFR ( Amer) > 60 Est GFR (Non-Af Amer) > 60 POC Glucose (mg/dL) Random Glucose 152 H Calcium 8.6 Phosphorus Magnesium Total Bilirubin 1.9 H AST 71 H ALT 57 H D Alkaline Phosphatase 96 Troponin I 0.0200 0.0200 NT-Pro-B Natriuret Pep 64891 H Total Protein 7.1 Albumin 3.7 Globulin 3.5 Albumin/Globulin Ratio 1.1 Triglycerides Cholesterol LDL Cholesterol Direct HDL Cholesterol Vitamin B12 TSH 3rd Generation 11/03/18 11/04/18 11/04/18 20:34 00:40 05:00 WBC 6.6 RBC 3.91 Hgb 12.7 Hct 39.5 MCV 100.8 H MCH 32.5 H MCHC 32.2 L RDW 17.3 H Plt Count 210 MPV Neut % (Auto) Lymph % (Auto) [place] % (Auto) Eos % (Auto) Baso % (Auto) Neut # (Auto) Lymph # (Auto) [place] # (Auto) Eos # (Auto) Baso # (Auto) PT 13.7 H INR 1.2 APTT 32.3 Sodium Potassium Chloride Carbon Dioxide Anion Gap BUN Creatinine Est GFR ( Amer) Est GFR (Non-Af Amer) POC Glucose (mg/dL) 168 H Random Glucose Calcium Phosphorus Magnesium Total Bilirubin AST ALT Alkaline Phosphatase Troponin I NT-Pro-B Natriuret Pep Total Protein Albumin Globulin Albumin/Globulin Ratio Triglycerides Cholesterol LDL Cholesterol Direct HDL Cholesterol Vitamin B12 TSH 3rd Generation 11/04/18 11/04/18 05:00 05:50 WBC RBC Hgb Hct MCV MCH MCHC RDW Plt Count MPV Neut % (Auto) Lymph % (Auto) [place] % (Auto) Eos % (Auto) Baso % (Auto) Neut # (Auto) Lymph # (Auto) [place] # (Auto) Eos # (Auto) Baso # (Auto) PT INR APTT Sodium 137 Potassium 3.3 L Chloride 101 Carbon Dioxide 27 Anion Gap 12 BUN 26 H Creatinine 0.7 Est GFR ( Amer) > 60 Est GFR (Non-Af Amer) > 60 POC Glucose (mg/dL) 125 H Random Glucose 115 H Calcium 8.8 Phosphorus 3.6 Magnesium 1.5 L Total Bilirubin 1.8 H AST 58 H ALT 49 Alkaline Phosphatase 93 Troponin I 0.0240 NT-Pro-B Natriuret Pep Total Protein 6.8 Albumin 3.6 Globulin 3.2 Albumin/Globulin Ratio 1.1 Triglycerides 65 Cholesterol 132 LDL Cholesterol Direct 70 HDL Cholesterol 44 Vitamin B12 896 TSH 3rd Generation 2.04
--- NOTE | 2018-11-04 09:49 | CARD ---
APPROVED REPORT Date of service: 11/03/2018 EKG Measurement Heart [id number] <Conclusion> Normal sinus rhythm with sinus arrhythmia Possible Left atrial enlargement Left ventricular hypertrophy with repolarization abnormality Abnormal ECG
[2018-11-04] MEDS ORDERED: Potassium Chloride 20 mEq ER Tab PO ONE (10:06)
--- NOTE | 2018-11-04 11:02 | RAD ---
Date of service: 11/03/2018 HISTORY: Shortness of breath, abdominal pain. COMPARISON: 10/21/2018. FINDINGS: LUNGS: New lower lobe infiltrates left greater than right. PLEURA: Bilateral pleural effusions left larger than right inseparable from adjacent consolidative change. CARDIOVASCULAR: Cardiomegaly. No evidence of acute, significant cardiovascular disease. Atherosclerotic calcifications identified primarily aortic arch. OSSEOUS STRUCTURES: No significant abnormalities. VISUALIZED UPPER ABDOMEN: Normal. OTHER FINDINGS: None. IMPRESSION: New bilateral lower lobe infiltrates/effusions left greater than right.
--- NOTE | 2018-11-04 11:35 | CP.PCM.PN ---
<Bijan Méndez - Last Filed: 11/04/18 11:50> Subjective - Date & Time of Evaluation Date of Evaluation: 11/04/18 Time of Evaluation: 07:00 - Subjective Subjective: Patient is seen and examined at bedside. No acute event overnight. Patient have good appetite, she denies any complains. Patient is hard hearing, but otherwise she is oriented and alert. Objective - Vital Signs/Intake and Output Vital Signs (last 24 hours): Temp Pulse Resp BP Pulse Ox 97.8 F 60 20 166/79 H 97 11/04/18 07:56 11/04/18 09:06 11/04/18 07:56 11/04/18 09:08 11/04/18 07:56 Intake and Output: 11/04/18 11/04/18 06:59 18:59 Intake Total 30 Output Total 75 Balance -45 - Medications Medications: Current Medications Aspirin (Aspirin Chewable) 81 mg PO DAILY [facility] Last Admin: 11/04/18 09:05 Dose: 81 mg Brimonidine Tartrate (Alphagan 0.2% Opht) 1 drop OU BID [facility] Last Admin: 11/04/18 09:05 Dose: 1 drop Carvedilol (Coreg) 6.25 mg PO BID [facility] Last Admin: 11/04/18 09:06 Dose: Not Given Dextrose (Dextrose 50% Inj) 0 ml IV STAT PRN; Protocol PRN Reason: Hypoglycemia Protocol Dextrose (Glutose 15) 0 gm PO ONCE PRN; Protocol PRN Reason: Hypoglycemia Protocol Dorzolamide HCl (Trusopt) 1 drop OU BID [facility] Last Admin: 11/04/18 09:09 Dose: 1 drop Folic Acid (Folic Acid) 1 mg PO DAILY [facility] Last Admin: 11/04/18 09:07 Dose: 1 mg Furosemide (Lasix) 40 mg PO DAILY [facility] Last Admin: 11/04/18 09:08 Dose: 40 mg Glucagon (Glucagen Diagnostic Kit) 0 mg IM STAT PRN; Protocol PRN Reason: Hypoglycemia Protocol Insulin Human Regular (Humulin R) 0 units [place] [facility]; Protocol Last Admin: 11/04/18 09:07 Dose: Not Given Lisinopril (Zestril) 2.5 mg PO BID [facility] Last Admin: 11/04/18 09:09 Dose: 2.5 mg Pantoprazole Sodium (Protonix Ec Tab) 40 mg PO DAILY [facility] Last Admin: 11/04/18 09:08 Dose: 40 mg Prednisone (Prednisone Tab) 10 mg PO DAILY [facility] Last Admin: 11/04/18 09:08 Dose: 10 mg Spironolactone (Aldactone) 12.5 mg PO DAILY [facility] Last Admin: 11/04/18 09:04 Dose: 12.5 mg - Labs Labs: 11/04/18 05:00 11/04/18 05:00 PT 13.7 Seconds (9.8-13.1) H 11/03/18 20:34 INR 1.2 11/03/18 20:34 APTT 32.3 Seconds (25.6-37.1) 11/03/18 20:34 - Constitutional Appears: Well, Non-toxic, No Acute Distress - Head Exam Head Exam: ATRAUMATIC, NORMAL INSPECTION, NORMOCEPHALIC - Eye Exam Eye Exam: EOMI, Normal appearance, PERRL Pupil Exam: NORMAL ACCOMODATION, PERRL - ENT Exam ENT Exam: Mucous Membranes Moist, Normal Exam - Neck Exam Neck Exam: Full ROM, Normal Inspection - Respiratory Exam Respiratory Exam: Rales, NORMAL BREATHING PATTERN - Cardiovascular Exam Cardiovascular Exam: REGULAR RHYTHM, +S1, +S2 - GI/Abdominal Exam GI & Abdominal Exam: Soft, Normal Bowel Sounds - Extremities Exam Additional comments: decrease ROM - Neurological Exam Neurological Exam: Alert, Awake Additional comments: hard hearing - Psychiatric Exam Psychiatric exam: Normal Affect, Normal Mood - Skin Skin Exam: Dry, Intact, Normal Color, Warm Assessment and Plan - Assessment and Plan (Free Text) Assessment: 83 yo F with pmhx of HTN, CHF, DM, depression, graves disease, gastritis, presents for 2 day history of SOB. Admitted for CHF exacerbation Plan: CHF ProBNP: [id number] Chan; Contacted Echo EF 20 contacted office, they will send echo result by fax Cardiology consulted: Dr. Bradley on case s/p lasix 40 IVP in ER; Continue lasix 40 qd Will diuresis for today hypokalemia K 3.3 KCL 40 PO HTN 166/70 c/w home meds monitor vitals DM accuchecks hypoglycemia protocol ICS low dose A1C 5.9 GERD with epigastric pain c/w pantoprazole Troponin x3 Transaminitis could be 2/2 to CHF exacerbation Improved 58/49 Megaloblastic anemia MCV 101.8 c/w home med: folate f/u Folate Pending B12 896 Hx of Grave's currently not on treatment TSH 2.04 Glaucoma c/w home meds; drops Appetite Pt states shes taking prednisone for appetite stimulation DVT/GI prophylaxis SCD pantoprazole PT/OT adl and ambulation <Ksenia Yeung Shoshana - Last Filed: 11/04/18 14:42> Objective - Vital Signs/Intake and Output Vital Signs (last 24 hours): Temp Pulse Resp BP Pulse Ox 97.9 F 70 20 146/72 96 11/04/18 11:56 11/04/18 11:56 11/04/18 11:56 11/04/18 11:56 11/04/18 11:56 Intake and Output: 11/04/18 11/04/18 06:59 18:59 Intake Total 30 Output Total 75 Balance -45 - Medications Medications: Current Medications Aspirin (Aspirin Chewable) 81 mg PO DAILY [facility] Last Admin: 11/04/18 09:05 Dose: 81 mg Brimonidine Tartrate (Alphagan 0.2% Opht) 1 drop OU BID [facility] Last Admin: 11/04/18 09:05 Dose: 1 drop Carvedilol (Coreg) 6.25 mg PO BID [facility] Last Admin: 11/04/18 09:06 Dose: Not Given Dextrose (Dextrose 50% Inj) 0 ml IV STAT PRN; Protocol PRN Reason: Hypoglycemia Protocol Dextrose (Glutose 15) 0 gm PO ONCE PRN; Protocol PRN Reason: Hypoglycemia Protocol Dorzolamide HCl (Trusopt) 1 drop OU BID [facility] Last Admin: 11/04/18 09:09 Dose: 1 drop Enoxaparin Sodium (Lovenox) 40 mg SC DAILY [facility]; Protocol Folic Acid (Folic Acid) 1 mg PO DAILY [facility] Last Admin: 11/04/18 09:07 Dose: 1 mg Furosemide (Lasix) 40 mg PO DAILY [facility] Last Admin: 11/04/18 09:08 Dose: 40 mg Glucagon (Glucagen Diagnostic Kit) 0 mg IM STAT PRN; Protocol PRN Reason: Hypoglycemia Protocol Insulin Human Regular (Humulin R) 0 units SC [facility]; Protocol Last Admin: 11/04/18 12:43 Dose: 1 unit Lisinopril (Zestril) 2.5 mg PO BID [facility] Last Admin: 11/04/18 09:09 Dose: 2.5 mg Pantoprazole Sodium (Protonix Ec Tab) 40 mg PO DAILY [facility] Last Admin: 11/04/18 09:08 Dose: 40 mg Prednisone (Prednisone Tab) 10 mg PO DAILY [facility] Last Admin: 11/04/18 09:08 Dose: 10 mg Spironolactone (Aldactone) 12.5 mg PO DAILY [facility] Last Admin: 11/04/18 09:04 Dose: 12.5 mg - Labs Labs: 11/04/18 05:00 11/04/18 05:00 PT 13.7 Seconds (9.8-13.1) H 11/03/18 20:34 INR 1.2 11/03/18 20:34 APTT 32.3 Seconds (25.6-37.1) 11/03/18 20:34 Attending/Attestation - Attestation I have personally seen and examined this patient.: Yes I have fully participated in the care of the patient.: Yes I have reviewed all pertinent clinical information, including history, physical exam and plan: Yes Notes (Text): Acute CHF exacerbation, systolic dysfunction EF 20% HTN Hypokalemia Hypomagnesemia Hearing Loss ( wears Hearing Aide) History of Right Breast Mastectomy Hx of Graves Dis - Pt feels better after diuresis - cont IV Lasix - replace K and Mg - cont Coreg, Aldactone and Lisinopril - Cardio consulted - Echo done at her Cardio's office ( EF 20%) - will fax copy to the unit
[2018-11-04 12:21] LABS: FOLATE > 20.0 ng/mL
[2018-11-04] MEDS ORDERED: Magnesium Sulfate 2 gm/50 ml 2 GM/50 ML BAG IVPB ONE (14:37)
[2018-11-05] MEDS ORDERED: Enoxaparin 40 mg Syringe SC SCH (09:00)
[2018-11-05] MEDS: Pantoprazole 40 mg EC Tab PO SCH (09:00)
[2018-11-05] MEDS: Brimonidine 0.2% 50 DROP/5 ML BOTTLE OU SCH (09:02)
[2018-11-05] MEDS: Dorzolamide 2% Ophth Soln OU SCH (09:03)
[2018-11-05] MEDS: Insulin Regular 100 units/ml SC SCH ×2 (09:03→11:07)
[2018-11-05 09:36] LABS: B-TYPE NATRIURETIC PEPTIDE 22400 pg/ml (0-900)
[2018-11-05 09:41] LABS: ALB/GLOB RATIO 1.1 (1.0-2.1); ALBUMIN 3.7 g/dL (3.5-5.0); ALT/SGPT 46 U/L (9-52); AST/SGOT 46 U/L (14-36); BLOOD UREA NITROGEN 27 mg/dl (7-17); CALCIUM 8.9 mg/dL (8.4-10.2); GFR NON-AFRICAN AMERICAN > 60
[2018-11-05] MEDS ORDERED: Potassium Chloride 20 mEq ER Tab PO ONE (09:44)
--- NOTE | 2018-11-05 09:51 | CP.PCM.PN ---
Subjective - Date & Time of Evaluation Date of Evaluation: 11/05/18 Time of Evaluation: 09:40 - Subjective Subjective: I spoke with the patient's son and subsequently the physician's assistant infant toddler teacher and the supervisor road administrator she had seen 2 days before. 9 It turns out that the patient was diagnosed as having nonischemic cardiomyopathy during the hospitalization while visiting [place] 1 month back. An echocardiogram at that time had revealed her left ventricular ejection fraction is 20%. She had also seen an field support rep couple of days before her hospitalization here. The plans where to put her on ARCHIE inhibitor, beta-alison and if left ventricular systolic function did not improve consider an AICD. The patient's son concedes that there probably was some salt loading in the few days preceding her hospitalization here. Having diuresed with furosemide, the patient feels much improved. She has been able to get in and out of bed and use the bathroom unassisted with little dyspnea. Her blood pressure was 110/70 mmHg. Her jugular venous pressure was not elevated and there was no edema over her lower extremity. There were very few rales at bases. Lab data was noted. Potassium supplement has been ordered for hypokalemia ind uced by diuresis. The patient may be allowed to return home taking furosemide 20 mg daily and weighing herself daily until she returns to her supervisor road administrator for a follow-up visit. Objective - Vital Signs/Intake and Output Vital Signs (last 24 hours): Temp Pulse Resp BP Pulse Ox 97.4 F L 69 20 158/75 H 98 11/05/18 08:05 11/05/18 09:02 11/05/18 08:05 11/05/18 09:02 11/05/18 08:05 - Medications Medications: Current Medications Aspirin (Aspirin Chewable) 81 mg PO DAILY [facility] Last Admin: 11/05/18 09:01 Dose: 81 mg Brimonidine Tartrate (Alphagan 0.2% Opht) 1 drop OU BID [facility] Last Admin: 11/05/18 09:02 Dose: 1 drop Carvedilol (Coreg) 6.25 mg PO BID [facility] Last Admin: 11/05/18 09:01 Dose: 6.25 mg Dextrose (Dextrose 50% Inj) 0 ml IV STAT PRN; Protocol PRN Reason: Hypoglycemia Protocol Dextrose (Glutose 15) 0 gm PO ONCE PRN; Protocol PRN Reason: Hypoglycemia Protocol Dorzolamide HCl (Trusopt) 1 drop OU BID [facility] Last Admin: 11/05/18 09:03 Dose: 1 drop Enoxaparin Sodium (Lovenox) 40 mg SC DAILY [facility]; Protocol Last Admin: 11/05/18 09:01 Dose: 40 mg Folic Acid (Folic Acid) 1 mg PO DAILY [facility] Last Admin: 11/05/18 09:00 Dose: 1 mg Furosemide (Lasix) 40 mg PO DAILY [facility] Last Admin: 11/05/18 09:00 Dose: 40 mg Glucagon (Glucagen Diagnostic Kit) 0 mg IM STAT PRN; Protocol PRN Reason: Hypoglycemia Protocol Insulin Human Regular (Humulin R) [address] [facility]; Protocol Last Admin: 11/05/18 09:03 Dose: Not Given Lisinopril (Zestril) 2.5 mg PO BID [facility] Last Admin: 11/05/18 09:02 Dose: 2.5 mg Pantoprazole Sodium (Protonix Ec Tab) 40 mg PO DAILY [facility] Last Admin: 11/05/18 09:00 Dose: 40 mg Potassium Chloride (K-Dur 20 Meq Er Tab) 40 meq PO ONCE ONE Stop: 11/05/18 09:45 Prednisone (Prednisone Tab) 10 mg PO DAILY [facility] Last Admin: 11/05/18 09:00 Dose: 10 mg Spironolactone (Aldactone) 12.5 mg PO DAILY [facility] Last Admin: 11/05/18 09:00 Dose: 12.5 mg - Labs Labs: 11/04/18 05:00 11/05/18 09:00 PT 13.7 Seconds (9.8-13.1) H 11/03/18 20:34 INR 1.2 11/03/18 20:34 APTT 32.3 Seconds (25.6-37.1) 11/03/18 20:34
[2018-11-05 11:51] VITALS: RESP 21; TEMP 98
--- NOTE | 2018-11-05 11:59 | CP.PCM.DIS ---
<Bijan Méndez - Last Filed: 11/05/18 13:08> Provider - Provider Date of Admission: 11/03/18 22:16 Attending physician: Vinnie Ramos Consults: 11/04/18 06:00 Cardiology Consult Routine Comment: Consulting Provider: Justyn Bradley V Consulting Physician: Justyn Bradley V Reason for Consult: CHF exacerbation Time Spent in preparation of Discharge (in minutes): 20 Hospital Course - Lab Results Lab Results: Most Recent Lab Values WBC 6.6 K/uL (4.8-10.8) 11/04/18 05:00 RBC 3.91 Mil/uL (3.80-5.20) 11/04/18 05:00 Hgb 12.7 g/dL (12.0-16.0) 11/04/18 05:00 Hct 39.5 % (34.0-47.0) 11/04/18 05:00 MCV 100.8 fl (81.0-99.0) H 11/04/18 05:00 MCH 32.5 pg (27.0-31.0) H 11/04/18 05:00 MCHC 32.2 g/dL (33.0-37.0) L 11/04/18 05:00 RDW 17.3 % (11.5-14.5) H 11/04/18 05:00 Plt Count 210 K/uL (130-400) 11/04/18 05:00 MPV 7.6 fl (7.2-11.7) 11/03/18 20:34 Neut % (Auto) 83.9 % (50.0-75.0) H 11/03/18 20:34 Lymph % (Auto) 11.0 % (20.0-40.0) L 11/03/18 20:34 [place] % (Auto) 3.2 % (0.0-10.0) 11/03/18 20:34 Eos % (Auto) 0.8 % (0.0-4.0) 11/03/18 20:34 Baso % (Auto) 1.1 % (0.0-2.0) 11/03/18 20:34 Neut # (Auto) 5.5 K/uL (1.8-7.0) 11/03/18 20:34 Lymph # (Auto) 0.7 K/uL (1.0-4.3) L 11/03/18 20:34 [place] # (Auto) 0.2 K/uL (0.0-0.8) 11/03/18 20:34 Eos # (Auto) 0.1 K/uL (0.0-0.7) 11/03/18 20:34 Baso # (Auto) 0.1 K/uL (0.0-0.2) 11/03/18 20:34 PT 13.7 Seconds (9.8-13.1) H 11/03/18 20:34 INR 1.2 11/03/18 20:34 APTT 32.3 Seconds (25.6-37.1) 11/03/18 20:34 Sodium 134 mmol/l (132-148) 11/05/18 09:00 Potassium 3.2 MMOL/L (3.6-5.0) L 11/05/18 09:00 Chloride 94 mmol/L (98-107) L 11/05/18 09:00 Carbon Dioxide 31 mmol/L (22-30) H 11/05/18 09:00 Anion Gap 12 (10-20) 11/05/18 09:00 BUN 27 mg/dl (7-17) H 11/05/18 09:00 Creatinine 0.8 mg/dl (0.7-1.2) 11/05/18 09:00 Est GFR ( Amer) > 60 11/05/18 09:00 Est GFR (Non-Af Amer) > 60 11/05/18 09:00 POC Glucose (mg/dL) 193 mg/dL (65-110) H 11/05/18 10:49 Random Glucose 102 mg/dL (65-105) 11/05/18 09:00 Hemoglobin A1c 5.9 % (4.2-6.5) 11/04/18 05:00 Calcium 8.9 mg/dL (8.4-10.2) 11/05/18 09:00 Phosphorus 3.6 mg/dl (2.5-4.5) 11/04/18 05:00 Magnesium 1.8 MG/DL (1.6-2.3) 11/05/18 09:00 Total Bilirubin 1.8 mg/dl (0.2-1.3) H 11/05/18 09:00 AST 46 U/L (14-36) H D 11/05/18 09:00 ALT 46 U/L (9-52) 11/05/18 09:00 Alkaline Phosphatase 92 U/L (38-126) 11/05/18 09:00 Troponin I 0.0280 ng/mL (0.00-0.120) 11/04/18 12:01 NT-Pro-B Natriuret Pep 34949 pg/ml (0-900) H 11/05/18 09:00 Total Protein 7.0 G/DL (6.3-8.2) 11/05/18 09:00 Albumin 3.7 g/dL (3.5-5.0) 11/05/18 09:00 Globulin 3.3 gm/dL (2.2-3.9) 11/05/18 09:00 Albumin/Globulin Ratio 1.1 (1.0-2.1) 11/05/18 09:00 Triglycerides 65 mg/DL (0-149) 11/04/18 05:00 Cholesterol 132 mg/dL (0-199) 11/04/18 05:00 LDL Cholesterol Direct 70 mg/dL (0-129) 11/04/18 05:00 HDL Cholesterol 44 MG/DL (30-70) 11/04/18 05:00 Vitamin B12 896 pg/mL (239-931) 11/04/18 05:00 Folate > 20.0 ng/mL 11/04/18 05:00 TSH 3rd Generation 2.04 mIU/ML (0.46-4.68) 11/04/18 05:00 - Hospital Course Hospital Course: 83 yo F with pmhx of HTN, CHF, DM, depression, graves disease, gastritis, presents for 2 day history of SOB. Admitted for CHF exacerbation. Dr. Bradley consulted. During her stay patient received Lasix, IVP in ER, Lasix [address] Chan contacted, Patient had ECHO on Thursday with EJ of 20%. Patient was seen and examined by cardiology today. Patient is clear by cardiology and she should follow up with her hunting guide for AICD placement, Patient also need physical therapy at home. Otherwise patient is seen and examined today, no acute event overnight. Patient report she is feeling better and ready to be discharged. Lab reviewed, improved Patient symptoms improved Patient chart reviewed patient is discharge home. Patient will be discharged home with: Lasix 20mg Continue home medication. Will send script for Physical therapy Follow up with PCP and [facility] Director Discharge Exam - Head Exam Head Exam: ATRAUMATIC, NORMAL INSPECTION, NORMOCEPHALIC - Eye Exam Eye Exam: EOMI, Normal appearance, PERRL Pupil Exam: NORMAL ACCOMODATION, PERRL - Respiratory Exam Respiratory Exam: Clear to PA & Lateral, NORMAL BREATHING PATTERN, UNREMARKABLE - Cardiovascular Exam Cardiovascular Exam: REGULAR RHYTHM, +S1, +S2 - GI/Abdominal Exam GI & Abdominal Exam: Normal Bowel Sounds, Unremarkable - Neurological Exam Neurological exam: Alert, Oriented x3, Reflexes Normal - Psychiatric Exam Psychiatric exam: Normal Affect, Normal Mood Discharge Plan - Discharge Medications Prescriptions: Furosemide [Lasix] 20 mg PO DAILY #30 tablet - Follow Up Plan Condition: GOOD Disposition: HOME/ ROUTINE Instructions: Heart Failure, Adult (DC) Additional Instructions: follow up appt with Dr.Marc Chan on thursday11/12/18 9:30am [facility] VISIT[facility] NURSE [phone] Referrals: Mary Naranjo MD [Family Provider] - <Ksenia Yeung - Last Filed: 11/05/18 13:42> Provider - Provider Date of Admission: 11/03/18 22:16 Attending physician: Vinnie Ramos Consults: 11/04/18 06:00 Cardiology Consult Routine Comment: Consulting Provider: Justyn Bradley V Consulting Physician: Justyn Bradley V Reason for Consult: CHF exacerbation Hospital Course - Lab Results Lab Results: Most Recent Lab Values WBC 6.6 K/uL (4.8-10.8) 11/04/18 05:00 RBC 3.91 Mil/uL (3.80-5.20) 11/04/18 05:00 Hgb 12.7 g/dL (12.0-16.0) 11/04/18 05:00 Hct 39.5 % (34.0-47.0) 11/04/18 05:00 MCV 100.8 fl (81.0-99.0) H 11/04/18 05:00 MCH 32.5 pg (27.0-31.0) H 11/04/18 05:00 MCHC 32.2 g/dL (33.0-37.0) L 11/04/18 05:00 RDW 17.3 % (11.5-14.5) H 11/04/18 05:00 Plt Count 210 K/uL (130-400) 11/04/18 05:00 MPV 7.6 fl (7.2-11.7) 11/03/18 20:34 Neut % (Auto) 83.9 % (50.0-75.0) H 11/03/18 20:34 Lymph % (Auto) 11.0 % (20.0-40.0) L 11/03/18 20:34 [place] % (Auto) 3.2 % (0.0-10.0) 11/03/18 20:34 Eos % (Auto) 0.8 % (0.0-4.0) 11/03/18 20:34 Baso % (Auto) 1.1 % (0.0-2.0) 11/03/18 20:34 Neut # (Auto) 5.5 K/uL (1.8-7.0) 11/03/18 20:34 Lymph # (Auto) 0.7 K/uL (1.0-4.3) L 11/03/18 20:34 [place] # (Auto) 0.2 K/uL (0.0-0.8) 11/03/18 20:34 Eos # (Auto) 0.1 K/uL (0.0-0.7) 11/03/18 20:34 Baso # (Auto) 0.1 K/uL (0.0-0.2) 11/03/18 20:34 PT 13.7 Seconds (9.8-13.1) H 11/03/18 20:34 INR 1.2 11/03/18 20:34 APTT 32.3 Seconds (25.6-37.1) 11/03/18 20:34 Sodium 134 mmol/l (132-148) 11/05/18 09:00 Potassium 3.2 MMOL/L (3.6-5.0) L 11/05/18 09:00 Chloride 94 mmol/L (98-107) L 11/05/18 09:00 Carbon Dioxide 31 mmol/L (22-30) H 11/05/18 09:00 Anion Gap 12 (10-20) 11/05/18 09:00 BUN 27 mg/dl (7-17) H 11/05/18 09:00 Creatinine 0.8 mg/dl (0.7-1.2) 11/05/18 09:00 Est GFR ( Amer) > 60 11/05/18 09:00 Est GFR (Non-Af Amer) > 60 11/05/18 09:00 POC Glucose (mg/dL) 193 mg/dL (65-110) H 11/05/18 10:49 Random Glucose 102 mg/dL (65-105) 11/05/18 09:00 Hemoglobin A1c 5.9 % (4.2-6.5) 11/04/18 05:00 Calcium 8.9 mg/dL (8.4-10.2) 11/05/18 09:00 Phosphorus 3.6 mg/dl (2.5-4.5) 11/04/18 05:00 Magnesium 1.8 MG/DL (1.6-2.3) 11/05/18 09:00 Total Bilirubin 1.8 mg/dl (0.2-1.3) H 11/05/18 09:00 AST 46 U/L (14-36) H D 11/05/18 09:00 ALT 46 U/L (9-52) 11/05/18 09:00 Alkaline Phosphatase 92 U/L (38-126) 11/05/18 09:00 Troponin I 0.0280 ng/mL (0.00-0.120) 11/04/18 12:01 NT-Pro-B Natriuret Pep 47994 pg/ml (0-900) H 11/05/18 09:00 Total Protein 7.0 G/DL (6.3-8.2) 11/05/18 09:00 Albumin 3.7 g/dL (3.5-5.0) 11/05/18 09:00 Globulin 3.3 gm/dL (2.2-3.9) 11/05/18 09:00 Albumin/Globulin Ratio 1.1 (1.0-2.1) 11/05/18 09:00 Triglycerides 65 mg/DL (0-149) 11/04/18 05:00 Cholesterol 132 mg/dL (0-199) 11/04/18 05:00 LDL Cholesterol Direct 70 mg/dL (0-129) 11/04/18 05:00 HDL Cholesterol 44 MG/DL (30-70) 11/04/18 05:00 Vitamin B12 896 pg/mL (239-931) 11/04/18 05:00 Folate > 20.0 ng/mL 11/04/18 05:00 TSH 3rd Generation 2.04 mIU/ML (0.46-4.68) 11/04/18 05:00 Attending/Attestation - Attestation I have personally seen and examined this patient.: Yes I have fully participated in the care of the patient.: Yes I have reviewed all pertinent clinical information, including history, physical exam and plan: Yes Notes (Text): Acute CHF exacerbation, systolic dysfunction EF 20% HTN Hypokalemia Hypomagnesemia Hearing Loss ( wears Hearing Aide) History of Right Breast Mastectomy Hx of Graves Disease - Pt feels better and very much improved after diuresis, SOB resolved - received IV Lasix, will d/c home on PO Lasix 20 mg daily, low salt diet, fluid restriction to 800 ml /day - replaced K and Mg - cont Coreg, Aldactone and Lisinopril - Cardio consulted - seen by Dr Bradley - Echo done at her Cardio's office recently ( EF 20%) - pt has an appt to see her Cardio on discharge - Thursday - Home RN to ff up on pt - need for med compliance
[2018-11-05 13:20] VITALS: BP 137/60
[2018-11-07 00:24] VITALS: PULSE 95; O2SAT 97
== END 2018-11-05 14:20 | disposition home or self-care (01) ==
LOC: H.ER 19:15 → H.ERHOLD 22:16 → INTOOBSV 22:16 → H.TEL 11-04 00:47
PROVIDERS: ADMIT Internal Medicine; ATTEND Internal Medicine
DX: I11.0 Hypertensive heart disease with heart failure (principal); I42.9 Cardiomyopathy, unspecified; I50.23 Acute on chronic systolic (congestive) heart failure; J44.9 Chronic obstructive pulmonary disease, unspecified; K76.1 Chronic passive congestion of liver; Z79.899 Other long term (current) drug therapy; Z88.0 Allergy status to penicillin; Z95.810 Presence of automatic (implantable) cardiac defibrillator; E05.00 Thyrotoxicosis with diffuse goiter without thyrotoxic crisis or storm; F32.9 Major depressive disorder, single episode, unspecified; K29.70 Gastritis, unspecified, without bleeding; R01.1 Cardiac murmur, unspecified; E11.9 Type 2 diabetes mellitus without complications; E83.42 Hypomagnesemia; E87.6 Hypokalemia; H40.9 Unspecified glaucoma; H91.90 Unspecified hearing loss, unspecified ear
CPT/HCPCS: 36415; 71045; 80053; 80061; 82607; 82746; 82948; 83036; 83735; 83880; 84100; 84443; 84484; 85025; 85027; 85610; 85730; 93005; 96374; 96375; 97162; 99285; C9113; G0378; G8978; G8979; J1650; J1940; J2765